=== PATIENT | male | born 1935 | race Caucasian/White ===

== ENCOUNTER 2016-10-29 17:22 | Inpatient (IN) ==
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
[2016-10-29] MEDS ORDERED: 0.9 % Sodium Chloride 500 ML IVC ONE (21:06)
[2016-10-29 21:44] LABS: Chol/HDL Ratio 6.5 (0-4.9)
[2016-10-29] MEDS: *HR* Heparin 5,000 UNIT/ML VIAL SQ SCH (22:25)
[2016-10-29] MEDS: 0.9 % Sodium Chloride 1,000 ML IVC SCH (22:26)
[2016-10-30] MEDS ORDERED: *HR* LORazepam 2 MG/ML VIAL IVP ONE (01:20)
[2016-10-30] MEDS ORDERED: *HR* LORazepam 2 MG/ML VIAL ONE ×2 (01:27→11:32)
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
[2016-10-30] MEDS ORDERED: Haloperidol Lactate 5 MG/ML VIAL IVP ONE ×3 (01:47→23:31)
[2016-10-30] MEDS: 0.9 % Sodium Chloride 1,000 ML IVC SCH ×2 (03:08→18:14)
[2016-10-30 05:52] LABS: Basophils % 0.4 %; Eosinophils # 0.1 K/mcL (0.0-0.6); Eosinophils % 0.7 %; Hematocrit 47.8 % (37.5-50.1); Immature Granulocytes % 0.3 % (0-4); Lymphocytes # 2.1 K/mcL (0.6-4.6); Lymphocytes % 21.7 %; Mean Corpuscular HGB Conc 31.4 g/dL (31.6-35.5); Mean Corpuscular Hemoglobin 27.9 pg (28.0-33.3); Mean Corpuscular Volume 88.8 fL (83.0-100.0); Mean Platelet Volume 11.3 fL (9.4-12.4); Monocytes # 0.8 K/mcL (0.0-1.3); Monocytes % 8.1 %; Neutrophils # 6.6 K/mcL (1.6-8.9); Platelet Count 116 K/mcL (140-400); Red Blood Count 5.38 M/mcL (4.19-5.50); Red Cell Distribution Width 12.8 % (11.5-14.5); Segmented Neutrophils % 68.8 %
[2016-10-30 05:57] LABS: INR 1.1; Prothrombin Time 12.3 Seconds (9.4-12.1)
[2016-10-30 06:12] LABS: BUN/Creatinine Ratio 22 (6-26); Blood Urea Nitrogen 24 mg/dL (8-26); Calcium 9.1 mg/dL (8.6-10.8); Carbon Dioxide 20 mEq/L (19-29); Chloride 109 mEq/L (98-109); Glucose 94 mg/dL (70-99); Osmolality,Calculated 298 (280-300); Potassium 4.1 mEq/L (3.5-4.5); Sodium 142 mEq/L (136-145); eGFR For African Americans > 60 (> 60); eGFR For Non-African Americans > 60 (> 60)
[2016-10-30] MEDS: Famotidine 20 MG/2 ML VIAL IVP SCH ×2 (06:27→17:24)
[2016-10-30] MEDS: *HR* Heparin 5,000 UNIT/ML VIAL SQ SCH ×2 (06:31→18:19)
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
--- NOTE | 2016-10-30 09:19 | ECHO - Doppler Report ---
Echo with Saline Contrast Name: Joseph Crawford Date of Study: 10/30/2016 Date: 1935 Ht: 69.0 in Medical Record#: [id number] Age: 81 Wt: 177.0 lb Gender: Male BSA: 1.96 Order #: [id number] Location: [facility] Room #: 2NE29 Reading Physician: Rory Ta MD, [facility] Management Professor: Candis Mitchell T Ordering Physician: Vidhya Levy DO Primary Physician: None Indications: Cerebrovascular Accident Impressions: Normal left ventricular size and systolic function, LVEF 60-65%. Mild concentric left ventricular hypertrophy. Mild left ventricular diastolic dysfunction. Normal right ventricular size and function. Mild aortic regurgitation. No evidence of pulmonary hypertension. No evidence of intracardiac shunting with agitated saline contrast. Blood pressure was elevated (194/96) at the time of this study. Left Ventricular Wall Motion: Rest Echo Findings All wall segments showed normal motion. Findings: Study Quality * Technically adequate exam. ECG Findings * Sinus rhythm with PACs. Left Ventricle * Normal left ventricular size and systolic function, LVEF 60-65%. * Mild concentric left ventricular hypertrophy. * Mild left ventricular diastolic dysfunction. Right Ventricle * Normal right ventricular size and function. Left Atrium * Normal left atrial size. Right Atrium * Normal right atrial size. Interatrial Septum * No evidence of intracardiac shunting with agitated saline contrast. Aorta * Normally sized aortic root. Pericardium * There is no pericardial effusion present. IVC * The IVC is not well evaluated. Aortic Valve * Trileaflet aortic valve. * Mild-moderately sclerotic aortic valve leaflets. * No aortic stenosis. * Mild aortic regurgitation. Mitral Valve * Mild mitral annular calcification * No mitral stenosis. * Trace mitral regurgitation. Tricuspid Valve * Normal tricuspid valve structure. * No tricuspid stenosis. * Trace tricuspid regurgitation. * No evidence of pulmonary hypertension. Pulmonic Valve * Normal pulmonic valve structure. * No pulmonic stenosis. * Trace pulmonic regurgitation. Contrast: Agitated saline 16 ml. Measurements: BP: 196/ 94 2D Normal Values RVIDd: 3.40 cm IVSd: 1.30 cm 0.6 - 1.0 cm LVIDd: 4.50 cm 3.7 - 5.6 cm LVPWd: 1.20 cm 0.6 - 1.1 cm LVIDs: 2.80 cm 1.5 - 3.6 cm AO: 3.20 cm < 4.0 cm LA volume: 56 Mitral Valve Peak E:.79 m/sec Peak A:1.10 m/sec E/A Ratio:0.7 Tricuspid Valve TV Regurg Peak Grad: 26.00mmHg TV Regurg Peak Ricky: 2.60m/sec Updated by Rory Ta MD, [facility] on 10/30/2016 9:13:05 AM electronically signed on 10/30/2016 9:14:07 AM with status of Final Wall Motion [place]: 1=Normal, 2=Hypokinesis, 3=Akinesis, 4=Dyskinesis, 5=Aneurysmal, 6=Hyperkinetic, X=Not Visualized (Blank)=Missing
[2016-10-30] MEDS ORDERED: Haloperidol Lactate 5 MG/ML VIAL IVP PRN (12:52)
[2016-10-30 13:56] LABS: Alanine Aminotransferase 11 Units/L (0-55); Albumin 3.9 g/dL (3.5-5.0); Albumin/Globulin Ratio 1.2 (1.1-2.2); Alkaline Phosphatase 77 Units/L (38-126); Aspartate Amino Transferase 22 Units/L (5-34); Bilirubin,Direct 0.4 mg/dL (0.0-0.5); Bilirubin,Indirect 0.7 mg/dL (0.0-1.2); Bilirubin,Total 1.1 mg/dL (0.2-1.2); Globulin 3.3 g/dL (2.4-3.5); Total Protein 7.2 g/dL (6.0-8.3)
[2016-10-30 14:42] LABS: Ethanol < 10 mg/dL (0-10)
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
[2016-10-30] MEDS: Thiamine (B-1) 100 MG in D5% in Water 50 ML IVPB SCH (17:11)
[2016-10-30] MEDS: Aspirin 325 MG TABLET PO SCH (17:19)
[2016-10-30] MEDS ORDERED: *HR* LORazepam 2 MG/ML VIAL IVP PRN (17:34)
[2016-10-30] MEDS: Folic Acid 1 MG in D5% in Water 50 ML IVPB SCH (18:09)
--- NOTE | 2016-10-30 20:44 | Carotid Imaging Report ---
Carotid Duplex Patient Name:Joseph Crawford Order Number:[id number] Procedure Date:10/30/2016 Date:1935ge:81 yrs Gender:Male Lt BP:186 / 88 mmHg Rt.BP:188 / 90 mmHgHeart Rate: Location:[facility] Room #: 2NE29 Discount Clerk:Candis Mitchell, RVT Referring MD:Vidhya Levy DO scrubber machine tender:None Reading MD:Antelmo Green MD , FACS Primary Indications:CVA Impressions: Findings: Right carotid system is essentially normal. Findings: Right mid ICA has a severe, 60-79% stenosis. Recommendations: After imaging the patient returned to their room. Test completed on 10/30/2016 at 8:00:00 am. Findings Carotid Duplex: Right: The right proximal common carotid artery has a PSV of 67 cm/s and a EDV of 9 cm/s. The right mid common carotid artery has a PSV of 83 cm/s and a EDV of 11 cm/s. There is intimal thickening. The right distal common carotid artery has a PSV of 79 cm/s and a EDV of 13 cm/s. There is intimal thickening. The right bifurcation has a PSV of 57 cm/s and a EDV of 10 cm/s. There is intimal thickening. The right proximal internal carotid artery has a PSV of 44 cm/s and a EDV of 8 cm/s. There is intimal thickening. The right mid internal carotid artery has a PSV of 48 cm/s and a EDV of 8 cm/s. The right distal internal carotid artery has a PSV of 40 cm/s and a EDV of 8 cm/s. The right eca has a PSV of 80 cm/s. The right vertebral artery has a PSV of 69 cm/s and a EDV of 12 cm/s. Left: The left proximal common carotid artery has a PSV of 83 cm/s and a EDV of 11 cm/s. The left mid common carotid artery has a PSV of 93 cm/s and a EDV of 11 cm/s. There is intimal thickening. The left distal common carotid artery has a PSV of 81 cm/s and a EDV of 13 cm/s. There is intimal thickening. The left bifurcation has a PSV of 65 cm/s and a EDV of 12 cm/s. There is intimal thickening. The left proximal internal carotid artery has a PSV of 27 cm/s and a EDV of 9 cm/s. There is 60-79% stenosis in the left mid internal carotid artery with a PSV of 267 cm/s and a EDV of 58 cm/s. There is calcified plaque. The left distal internal carotid artery has a PSV of 95 cm/s and a EDV of 21 cm/s. The left eca has a PSV of 86 cm/s and a EDV of 14 cm/s. The left vertebral artery has a PSV of 32 cm/s and a EDV of 9 cm/s. Prior Study: No prior study available for comparison. Carotid Results Right PSV EDV Assessment Proximal CCA 67 9 Mid CCA 83 11 Distal CCA 79 13 Bifurcation 57 10 Proximal ICA 44 8 Mid ICA 48 8 Distal ICA 40 8 ECA 80 0 Vertebral Artery 69 12 Left PSV EDV Assessment Proximal CCA 83 11 Mid CCA 93 11 Distal CCA 81 13 Bifurcation 65 12 Proximal ICA 27 9 Mid ICA 267 58 Distal ICA 95 21 ECA 86 14 Vertebral Artery 32 9 Ratio's Right ICA/CCA Ratio: 0.53 ICA/CCA Values: 44/83 Left ICA/CCA Ratio: 2.87 ICA/CCA Values: 267/93 Updated by Antelmo Green MD, FACS on 10/30/2016 8:38:30 PM Antelmo Green MD electronically signed on 10/30/2016 8:39:07 PM with status of Final
[2016-10-30] MEDS: *HR* LORazepam 2 MG/ML VIAL IVP PRN (21:55)
[2016-10-30] MEDS: Latanoprost 2.5 ML BOTTLE BOTH EYES SCH (21:57)
[2016-10-31] MEDS: *HR* LORazepam 2 MG/ML VIAL IVP PRN ×2 (05:04→23:05)
[2016-10-31] MEDS: Famotidine 20 MG/2 ML VIAL IVP SCH ×2 (05:07→17:44)
[2016-10-31 06:15] LABS: BUN/Creatinine Ratio 18 (6-26); Blood Urea Nitrogen 18 mg/dL (8-26); Carbon Dioxide 18 mEq/L (19-29); Chloride 105 mEq/L (98-109); Glucose 137 mg/dL (70-99); Magnesium 1.6 mg/dL (1.6-2.6); Osmolality,Calculated 292 (280-300); Phosphorous 3.5 mg/dL (2.3-4.7); Potassium 3.8 mEq/L (3.5-4.5); Sodium 139 mEq/L (136-145); eGFR For African Americans > 60 (> 60); eGFR For Non-African Americans > 60 (> 60)
[2016-10-31] MEDS: Folic Acid 1 MG in D5% in Water 50 ML IVPB SCH (08:34)
[2016-10-31] MEDS: Thiamine (B-1) 100 MG in D5% in Water 50 ML IVPB SCH (08:35)
[2016-10-31] MEDS: *HR* Heparin 5,000 UNIT/ML VIAL SQ SCH ×2 (08:35→20:08)
[2016-10-31] MEDS: Aspirin 325 MG TABLET PO SCH (08:36)
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
[2016-10-31] MEDS: 0.9 % Sodium Chloride 1,000 ML IVC SCH ×2 (13:30→23:11)
[2016-10-31] MEDS ORDERED: *HR* LORazepam 2 MG/ML VIAL IVP PRN ×2 (14:32)
--- NOTE | 2016-10-31 15:47 | Neurology Progress Note ---
Date of Encounter: 10/31/16 Time of Encounter: 15:44 Assessment and Plan (1) CVA (cerebral vascular accident) Current Visit: No Status: Acute right apprentice funeral director territory infarct. Carotid artery artery duplex showed left ICA 60-79 % stenosis but this is essentially asymptomatic. Echocardiography showed LVEF of 60% and no source of emboli noted. Likely thrombotic event from left OPTOMETRIC COORDINATOR. Please continue aspirin RC 300mg/oral 325mg daily. Continue statin therapy. Continue medical and supportive care Qualifiers: CVA mechanism: occlusion Precerebral and cerebral artery: posterior cerebral artery Laterality of affected vessel: left Qualified Code(s): I63.532 - Cerebral infarction due to unspecified occlusion or stenosis of left posterior cerebral artery (2) Agitation Current Visit: Yes Status: Acute The patient has been confused and agitated and now he is sedated but still has significant confusion and major concern if alcohol withdrawal. patient has no fever, no leucocytosis, no complaint of headache and it is unlikely we are dealing with VALVE SEATER OPERATOR infection. Will obtain MRI of brain ( uanble to be done until Thursday) or repeat CT of head without contrast to see stable evolution is present. Continue DT prophylaxis and medical supportive Subjective Principal diagnosis: altered mental status Interval history: Patient is currently sedated and last dose of ativan this AM. Per nursing staff , patient woke up half hour ago, still confused and talks nonsense. Less combative today. Moves all extremities and complains no headaches. No seizure activity. no Fever. Is chronic alcohol drinker but detailed information regarding the alcohol use is unknown. Initial CT of head is normal. No leucocytosis on CBC. Carotid artery duplex showed 60-79% left mid ICA stenosis, Right ICA is essentially normal. Echocardiography showed normal LVEF, no significant valvular disease, no regional wall motion abnormality seen. Objective - Constitutional Vitals: Temp Pulse Resp BP Pulse Ox 98.9 F 86 18 203/120 96 10/31/16 09:05 10/31/16 12:00 10/31/16 12:00 10/31/16 14:52 10/31/16 08:30 - Neurological Exam Sensorimotor examination: Present: other (Unable to assess no gross sensory loss ) Motor Examination: Present: grossly full strength in all extremities, other ( Grossly intact. Unable to assess more accurately due to sedation) Sensation intact: Present: other (Unable to assess due to sedation) Posture: Present: other (None) Reflex and gait examination: other (Gait not tested) Reflexes: Biceps: 1+, Triceps: 1+, Brachioradialis: 1+, Patella: 1+, Achilles: 1 + Mental Status Examination: Present: awake, alert, does not follow commands, delerious, agitated, opens eyes to voice, opens eyes to noxious stimulation, makes eye contact, inattentive Cranial nerve examination: Present: PERRL, EOMI (appears full, more to the right side. No nystagmus), visual salgado intact, corneal reflexes brisk symmetrically, sensory to face intact (unable to assess), mastication intact, no facial asymmetry is present, no dysarthria (Dysarthric, unable to decipher what he is saying), hearing is intact symmetrically, soft palate elevates bilaterally upon phonation, gag reflex intact, flexes SCM and trapezius muscles symmetrically with full power, tongue protrudes midline (Unable to assess due to sedation), no atrophy or facial fasiculations present (Not assessed) Results - Laboratory Findings CBC and BMP: 10/30/16 05:36 10/31/16 05:47 Abnormal lab findings: Abnormal lab results MCH 27.9 pg (28.0-33.3) L 10/30/16 05:36 MCHC 31.4 g/dL (31.6-35.5) L 10/30/16 05:36 Plt Count 116 K/mcL (140-400) L 10/30/16 05:36 PT 12.3 Seconds (9.4-12.1) H 10/30/16 05:36 Carbon Dioxide 18 mEq/L (19-29) L 10/31/16 05:47 Glucose 137 mg/dL (70-99) H 10/31/16 05:47 Cholesterol 228 mg/dL (< 200) H 10/29/16 21:07 LDL Cholesterol, Calc 169 mg/dL (0-99) H 10/29/16 21:07 HDL Cholesterol 35 mg/dL (40-59) L 10/29/16 21:07 Cholesterol/HDL Ratio 6.5 (0-4.9) H 10/29/16 21:07 Consult Discharge Plan - Plan Referrals: NO,PCP [Primary Care Provider] -
--- NOTE | 2016-10-31 16:52 | Electrocardiograph Report ---
[place] [id number] Test Date: 2016-10-30 Pat Name: Joseph Crawford Department: 111 Room: 2NE29 Gender: M Cytotechnologist/Histotechnologist: : 1935 Requested By: Vidhya Levy Order Number: [id number] Reading MD: Lakesha Chapman Measurements Intervals [place] Rate: 105 P: [place]: 0 QRS: -11 QRSD: 150 T: -5 QT: 348 QTc: 409 Interpretive Statements ATRIAL FIBRILLATION WITH RAPID VENTRICULAR RESPONSE RIGHT BUNDLE BRANCH BLOCK Electronically Signed On 10-31-2016 16:51:24 EST by Lakesha Chapman
[2016-10-31] MEDS: Thiamine (B-1) 100 MG, Folic Acid 1 MG, MVI, adult with vitamin K 10 ML in 0.9 % Sodi... IVPB SCH (17:44)
[2016-10-31] MEDS: Latanoprost 2.5 ML BOTTLE BOTH EYES SCH (20:08)
[2016-11-01] MEDS: *HR* Labetalol 20 MG/4 ML SYRINGE IVP PRN (05:42)
[2016-11-01] MEDS: Famotidine 20 MG/2 ML VIAL IVP SCH ×2 (05:43→16:31)
[2016-11-01 06:31] LABS: INR 1.2; Prothrombin Time 12.7 Seconds (9.4-12.1)
[2016-11-01 06:32] LABS: Hematocrit 48.7 % (37.5-50.1); Hemoglobin 16.3 g/dL (12.9-16.9)
[2016-11-01 06:34] LABS: Activated Partial Thrombo Time 30.1 Seconds (26.0-36.0)
[2016-11-01 06:40] LABS: BUN/Creatinine Ratio 19 (6-26); Blood Urea Nitrogen 17 mg/dL (8-26); Calcium 8.8 mg/dL (8.6-10.8); Carbon Dioxide 21 mEq/L (19-29); Chloride 107 mEq/L (98-109); Glucose 117 mg/dL (70-99); Osmolality,Calculated 291 (280-300); Potassium 3.6 mEq/L (3.5-4.5); Sodium 139 mEq/L (136-145); eGFR For African Americans > 60 (> 60); eGFR For Non-African Americans > 60 (> 60)
[2016-11-01] MEDS: *HR* Heparin 5,000 UNIT/ML VIAL SQ SCH ×2 (06:43→16:32)
[2016-11-01] MEDS: Aspirin 325 MG TABLET PO SCH (09:42)
[2016-11-01] MEDS: 0.9 % Sodium Chloride 1,000 ML IVC SCH ×3 (09:44→23:12)
--- NOTE | 2016-11-01 13:38 | Internal Med Progress Note ---
Date of Encounter: 11/01/16 Time of Encounter: 13:33 - Assessment and plan (1) CVA (cerebral vascular accident) Current Visit: No Status: Acute Assessment and plan: -CT non contrast CT reveals acute posterior infarct. Non hemorrhagic -Patient very agitated. unable to do further images -Patient passed swallow eval. Plan -Keep HOB <15 degrees -Allow permissive HTN. Systolic 160-210. -Will consider getting carotid US when patient less agitated. -Aspirin oral or rectal ordered daily. Statin on board. 10/31/16 -Patient very lethargic today. Only one episode of combativeness -Not getting scheduled or frequent benzo use -Patient does respond to commands and eyes are PEERL and not fixed. Dont feel like aditional immaging is needed at this time to evaluate for worsening stroke -Continue to allow permissive HTN -ECHO WNL -Carotid artery scan showed Right mid ICA stenosis 60/79% Plan -Continue rectal or oral asprin,statin -Low dose Labetalol ordered for HTN >220/120 -Neuro on board. Following recommendations 11/01/[address] brain today suggestive of stroke in evolution. no hemorrhagic conversion noted. Blood pressure with in acceptable range. Neuro on board. case discussed with Neuro ( Dr Cedillo) no need of LP at this point. will cont present management Qualifiers: CVA mechanism: occlusion Precerebral and cerebral artery: posterior cerebral artery Laterality of affected vessel: left Qualified Code(s): I63.532 - Cerebral infarction due to unspecified occlusion or stenosis of left posterior cerebral artery (2) AA (alcohol abuse) Current Visit: Yes Status: Acute Assessment and plan: -Patient states that he drinks whiskey daily. Neighbors state patient lives a secluded life. -Patient became very agitated, confused, disoriented. Alcohol withdraw vs dementia vs acute stroke. -Glucose normal, no need to add glucose to fluids. Plan -Start fluids with NS, folate, thiamine-prevent wernickies. -Check glucose -Ativan on board. Librium ordered if patient will be compliant. CWA protocol initiated. -Haldol d/c because of decrease in seizure threshold -Keep restraints and sitter. 10/31/16 -same as above 11/01/2016 likely etoh withdrawl. on Librim and Ativan: scheduled dose. jesus (3) Hypertension Current Visit: Yes Status: Acute Assessment and plan: -Permissive HTN for the next week, per neurology. Qualifiers: Hypertension type: other secondary hypertension Qualified Code(s): I15.8 - Other secondary hypertension - Subjective Interval history: seen and examined. comfortably sleeping in bed. woke up on arousal. - Constitutional Vitals: Temp Pulse Resp BP Pulse Ox 99.2 F 85 16 195/105 96 11/01/16 10:49 11/01/16 10:49 11/01/16 10:49 11/01/16 10:49 11/01/16 10:49 General appearance: Present: A&O X 1 (confused) - Head Head exam: Present: atraumatic, normocephalic - Eye Eye exam: Present: PERRL, conjuntiva pink, sclera anicteric Pupils: Present: PERRL - Neck Neck exam general surgery: Present: supple, trachea midline. Absent: lymphadenopathy - Respiratory Respiratory exam: Present: CTAB. Absent: accessory muscle use, rales, rhonchi, wheezes - Cardiovascular Cardiovascular exam: Present: RRR, +S1, +S2. Absent: diastolic murmur, gallop, rubs, systolic murmur - GI/Abdominal GI/Abdominal exam: Present: normal bowel sounds, soft, no peritoneal signs. Absent: distended, tenderness - Extremities Exam Extremities exam: Present: warm, radial pulses palpable and symetrical. Absent : calf tenderness, cyanotic, pedal edema - Neurological Exam Neurological exam: Present: CN II-XII intact, oriented X3, no focal deficits. Absent: pronater drift, facial droop, speech deficit - Skin Skin exam: Present: dry, intact Internal Medicine: Result - Labs CBC & Chem 7: 11/01/16 06:13 11/01/16 06:13 Labs: Short CBC 11/01/16 Range/Units 06:13 Hgb 16.3 (12.9-16.9) g/dL Hct 48.7 (37.5-50.1) % BMP 11/01/16 06:13 Sodium 139 Potassium 3.6 Chloride 107 Carbon Dioxide 21 BUN 17 Creatinine 0.89 Glucose 117 H Calcium 8.8 - ABG Interpretation ABG results: PT/INR, D-dimer PT 12.7 Seconds (9.4-12.1) H 11/01/16 06:13 - Impressions Impressions Head CT 11/01/16 10:30 IMPRESSION: Continued evolution of acute to subacute infarct involving the left CAR LOADER distribution. No evidence of hemorrhagic transformation. D/ / 11/01/2016 11:58:08 Tom Bojorquez MD / florecita Interpreting Provider: Tom Bojorquez MD Consult Discharge Plan - Plan Referrals: NO,PCP [Primary Care Provider] -
[2016-11-01] MEDS: Thiamine (B-1) 100 MG, Folic Acid 1 MG, MVI, adult with vitamin K 10 ML in 0.9 % Sodi... IVPB SCH (16:30)
--- NOTE | 2016-11-01 18:16 | Neurology Progress Note ---
Date of Encounter: 11/01/16 Time of Encounter: 18:13 Assessment and Plan (1) CVA (cerebral vascular accident) Current Visit: No Status: Acute As per CT scan findings there is a possibility that patient did have an acute infarct suggested that we should continue on antiplatelet therapy, He also has stenosis of carotid but it is an asymptomatic side do not think that he will need any surgical intervention at this time perhaps could be done later on suggested to continue on his statin and Plavix. (2) Agitation Current Visit: Yes Status: Acute Changes on Ciwa protocol suggested to continue high risk for withdrawal, once he is awake he may need physical therapy evaluation other treatment is as per primary team Subjective Principal diagnosis: altered mental status Interval history: Patient noted to be sedated as he was very agitated earlier he is been on sedation now no new symptoms reported by staff Objective - Constitutional Vitals: Temp Pulse Resp BP Pulse Ox 99.2 F 96 24 187/113 96 11/01/16 10:49 11/01/16 15:08 11/01/16 15:08 11/01/16 15:08 11/01/16 10:49 - Neurological Exam Sensorimotor examination: Present: intact, other (Unable to assess no gross motor defecit, limited neurological exam due to sedation) Motor Examination: Present: grossly full strength in all extremities, other ( Grossly intact. Unable to assess more accurately due to sedation) Sensation intact: Present: other (Unable to assess due to sedation) Posture: Present: other (None) Reflex and gait examination: other (Gait not tested) Mental Status Examination: Present: awake, alert, does not follow commands, delerious, agitated, opens eyes to voice, opens eyes to noxious stimulation, makes eye contact, inattentive Cranial nerve examination: Present: PERRL, EOMI (appears full, more to the right side. No nystagmus), visual salgado intact, corneal reflexes brisk symmetrically, sensory to face intact (unable to assess), mastication intact, no facial asymmetry is present, no dysarthria (Dysarthric, unable to decipher what he is saying), hearing is intact symmetrically, soft palate elevates bilaterally upon phonation, gag reflex intact, flexes SCM and trapezius muscles symmetrically with full power, tongue protrudes midline (Unable to assess due to sedation), no atrophy or facial fasiculations present (Not assessed) Results - Laboratory Findings CBC and BMP: 11/01/16 06:13 11/01/16 06:13 Abnormal lab findings: Abnormal lab results MCH 27.9 pg (28.0-33.3) L 10/30/16 05:36 MCHC 31.4 g/dL (31.6-35.5) L 10/30/16 05:36 Plt Count 116 K/mcL (140-400) L 10/30/16 05:36 PT 12.7 Seconds (9.4-12.1) H 11/01/16 06:13 Glucose 117 mg/dL (70-99) H 11/01/16 06:13 POC Glucose 104 (58-89) H 10/31/16 18:51 Cholesterol 228 mg/dL (< 200) H 10/29/16 21:07 LDL Cholesterol, Calc 169 mg/dL (0-99) H 10/29/16 21:07 HDL Cholesterol 35 mg/dL (40-59) L 10/29/16 21:07 Cholesterol/HDL Ratio 6.5 (0-4.9) H 10/29/16 21:07 Consult Discharge Plan - Plan Referrals: NO,PCP [Primary Care Provider] -
[2016-11-01 21:29] LABS: CK-BB (CK isoenzymes) 0 % (0-0); CK-MB (CK isoenzymes) 0 % (0-4); CK-MM (CK-isoenzymes) 100 % (96-100)
[2016-11-01] MEDS: Latanoprost 2.5 ML BOTTLE BOTH EYES SCH (21:38)
[2016-11-01] MEDS ORDERED: *HR* LORazepam 2 MG/ML VIAL IVP ONE ×2 (21:53→23:08)
[2016-11-01 23:12] LABS: Bilirubin,Urine Small (Negative); Blood,Urine Large (Negative); Clarity,Urine Cloudy (Clear); Color,Urine Yellow (Yellow); Glucose,Urine (UA) Normal (Normal); Ketones,Urine 40 mg/dL (Negative); Leukocyte Esterase,Urine Negative (Negative); Nitrite,Urine Negative (Negative); PH,Urine 5.5 pH Units (5.0-8.0); Protein,Urine >=300 mg/dL (Neg-Trace); Specific Gravity,Urine 1.022 (1.010-1.025); Urobilinogen,Urine Normal (Normal)
[2016-11-01 23:15] LABS: Bacteria,Urine None Seen per hpf (None-Few); Hyaline Casts,Urine None Seen per lpf (None-Few); RBC,Urine TNTC per hpf (0-3); Squamous Epithelial Cell,Urine Many per lpf (None-Few)
[2016-11-01 23:38] LABS: Mucus,Urine Few (Few); Renal Epithelial Cells,Urine Moderate per hpf (None-Few); Yeast,Urine Few per hpf (None Seen)
[2016-11-02] MEDS: Famotidine 20 MG/2 ML VIAL IVP SCH ×2 (05:02→16:48)
[2016-11-02 05:40] LABS: Red Cell Distribution Width 12.8 % (11.5-14.5)
[2016-11-02 05:42] LABS: Basophils % 0.3 %; Eosinophils # 0.2 K/mcL (0.0-0.6); Eosinophils % 1.9 %; Hematocrit 49.6 % (37.5-50.1); Hemoglobin 16.1 g/dL (12.9-16.9); Immature Granulocytes % 0.5 % (0-4); Immature Platelets 9.2 % (1.1-6.1); Lymphocytes # 2.5 K/mcL (0.6-4.6); Lymphocytes % 22.2 %; Mean Corpuscular HGB Conc 32.5 g/dL (31.6-35.5); Mean Corpuscular Hemoglobin 27.6 pg (28.0-33.3); Mean Corpuscular Volume 84.9 fL (83.0-100.0); Mean Platelet Volume 12.1 fL (9.4-12.4); Monocytes # 1.3 K/mcL (0.0-1.3); Monocytes % 11.3 %; Neutrophils # 7.1 K/mcL (1.6-8.9); Platelet Count 101 K/mcL (140-400); Red Blood Count 5.84 M/mcL (4.19-5.50); Segmented Neutrophils % 63.8 %
[2016-11-02 05:43] LABS: INR 1.1; Prothrombin Time 12.3 Seconds (9.4-12.1)
[2016-11-02 05:59] LABS: Alanine Aminotransferase 19 Units/L (0-55); Albumin 3.1 g/dL (3.5-5.0); Albumin/Globulin Ratio 0.9 (1.1-2.2); Alkaline Phosphatase 70 Units/L (38-126); Aspartate Amino Transferase 32 Units/L (5-34); BUN/Creatinine Ratio 21 (6-26); Bilirubin,Total 1.1 mg/dL (0.2-1.2); Blood Urea Nitrogen 20 mg/dL (8-26); Calcium 8.8 mg/dL (8.6-10.8); Carbon Dioxide 21 mEq/L (19-29); Chloride 109 mEq/L (98-109); Globulin 3.4 g/dL (2.4-3.5); Glucose 99 mg/dL (70-99); Osmolality,Calculated 295 (280-300); Potassium 3.6 mEq/L (3.5-4.5); Sodium 141 mEq/L (136-145); Total Protein 6.5 g/dL (6.0-8.3); eGFR For African Americans > 60 (> 60); eGFR For Non-African Americans > 60 (> 60)
[2016-11-02] MEDS: *HR* Heparin 5,000 UNIT/ML VIAL SQ SCH ×2 (06:17→16:48)
[2016-11-02] MEDS: *HR* LORazepam 2 MG/ML VIAL IVP PRN ×2 (08:46→12:23)
[2016-11-02] MEDS: 0.9 % Sodium Chloride 1,000 ML IVC SCH ×2 (10:38→20:33)
[2016-11-02] MEDS: Aspirin 325 MG TABLET PO SCH (11:51)
--- NOTE | 2016-11-02 14:39 | Consult Note ---
Date of Encounter: 11/02/16 Time of Encounter: 14:34 Assessment & Recommendation (1) AA (alcohol abuse) Current visit: Yes Status: Acute Assessment & Recommendation: Patient cannot be evaluated at this time due to his delirious condition consult were not being done until further notice thank you. History of Present Illness Patient: new to practice Requesting Physician: Kian Mondragon MD Reason for consult: delerium History of present illness: Mr. Crawford is a 81 year old male admitted to the hospital for treatment of CVA, alcohol withdrawal delirium, agitation and combativeness and change of mental status. I reviewed the medical records and discussed the case with medical attending Dr. Mondragon . Dr. Carmichael indicated that the patient is in a delirious condition and unable to respond to commands at this time and he cannot be interviewed. CC: Kian Mondragon MD Past Med Surg Social Fam HX - Past Medical History Medical history: glaucoma, other - Social History Smoking Status: Never smoker Smokeless Tobacco Status: No Alcohol use: none Drug use: none Medications & Allergies No Known Home Drugs 10/29/16 [History] Allergies No Known Allergies Allergy (Verified 10/30/16 07:45) Results - Vital Signs Vital signs: Temp Pulse Resp BP Pulse Ox 97.8 F 83 18 178/84 95 11/02/16 07:00 11/02/16 07:00 11/02/16 07:00 11/02/16 07:00 11/02/16 07:00 - Labs Labs: Laboratory Last Values WBC 11.1 K/mcL (4.3-11.1) 11/02/16 05:17 RBC 5.84 M/mcL (4.19-5.50) H 11/02/16 05:17 Hgb 16.1 g/dL (12.9-16.9) 11/02/16 05:17 Hct 49.6 % (37.5-50.1) 11/02/16 05:17 MCV 84.9 fL (83.0-100.0) 11/02/16 05:17 MCH 27.6 pg (28.0-33.3) L 11/02/16 05:17 MCHC 32.5 g/dL (31.6-35.5) 11/02/16 05:17 RDW 12.8 % (11.5-14.5) 11/02/16 05:17 Plt Count 101 K/mcL (140-400) L 11/02/16 05:17 MPV 12.1 fL (9.4-12.4) 11/02/16 05:17 Immature Gran % 0.5 % (0-4) 11/02/16 05:17 Seg Neutrophils % 63.8 % 11/02/16 05:17 Lymphocytes % 22.2 % 11/02/16 05:17 Monocytes % 11.3 % 11/02/16 05:17 Eosinophils % 1.9 % 11/02/16 05:17 Basophils % 0.3 % 11/02/16 05:17 Neutrophils # 7.1 K/mcL (1.6-8.9) 11/02/16 05:17 Lymphocytes # 2.5 K/mcL (0.6-4.6) 11/02/16 05:17 Monocytes # 1.3 K/mcL (0.0-1.3) 11/02/16 05:17 Eosinophils # 0.2 K/mcL (0.0-0.6) 11/02/16 05:17 Basophils # 0.0 K/mcL (0.0-0.2) 11/02/16 05:17 Immature Plt Fraction 9.2 % (1.1-6.1) H 11/02/16 05:17 PT 12.3 Seconds (9.4-12.1) H 11/02/16 05:17 INR 1.1 11/02/16 05:17 APTT 30.1 Seconds (26.0-36.0) 11/01/16 06:13 Sodium 141 mEq/L (136-145) 11/02/16 05:17 Potassium 3.6 mEq/L (3.5-4.5) 11/02/16 05:17 Chloride 109 mEq/L (98-109) 11/02/16 05:17 Carbon Dioxide 21 mEq/L (19-29) 11/02/16 05:17 BUN 20 mg/dL (8-26) 11/02/16 05:17 Creatinine 0.96 mg/dL (0.72-1.25) 11/02/16 05:17 Est GFR ( Amer) > 60 (> 60) 11/02/16 05:17 Est GFR (Non-Af Amer) > 60 (> 60) 11/02/16 05:17 BUN/Creatinine Ratio 21 (6-26) 11/02/16 05:17 Glucose 99 mg/dL (70-99) 11/02/16 05:17 POC Glucose 104 (58-89) H 10/31/16 18:51 Calculated Osmolality 295 (280-300) 11/02/16 05:17 Calcium 8.8 mg/dL (8.6-10.8) 11/02/16 05:17 Phosphorus 3.5 mg/dL (2.3-4.7) 10/31/16 05:47 Magnesium 1.6 mg/dL (1.6-2.6) 10/31/16 05:47 Total Bilirubin 1.1 mg/dL (0.2-1.2) 11/02/16 05:17 Direct Bilirubin 0.4 mg/dL (0.0-0.5) 10/30/16 12:40 Indirect Bilirubin 0.7 mg/dL (0.0-1.2) 10/30/16 12:40 AST 32 Units/L (5-34) 11/02/16 05:17 ALT 19 Units/L (0-55) 11/02/16 05:17 Alkaline Phosphatase 70 Units/L (38-126) 11/02/16 05:17 Creatine Kinase 136 Units/L (30-200) 10/29/16 21:07 Troponin I 0.03 ng/mL (0-0.03) 10/30/16 12:40 Serum Total Protein 6.5 g/dL (6.0-8.3) 11/02/16 05:17 Albumin 3.1 g/dL (3.5-5.0) L D 11/02/16 05:17 Globulin 3.4 g/dL (2.4-3.5) 11/02/16 05:17 Albumin/Globulin Ratio 0.9 (1.1-2.2) L 11/02/16 05:17 Triglycerides 120 mg/dL (< 150) 10/29/16 21:07 Cholesterol 228 mg/dL (< 200) H 10/29/16 21:07 LDL Cholesterol, Calc 169 mg/dL (0-99) H 10/29/16 21:07 VLDL Cholesterol, Calc 24 mg/dL (< 31) 10/29/16 21:07 HDL Cholesterol 35 mg/dL (40-59) L 10/29/16 21:07 Cholesterol/HDL Ratio 6.5 (0-4.9) H 10/29/16 21:07 Urine Color Yellow (Yellow) 11/01/16 23:00 Urine Clarity Cloudy (Clear) A 11/01/16 23:00 Urine pH 5.5 pH Units (5.0-8.0) 11/01/16 23:00 Ur Specific [place] 1.022 (1.010-1.025) 11/01/16 23:00 Urine Protein >=300 mg/dL (Neg-Trace) H 11/01/16 23:00 Urine Glucose (UA) Normal mg/dL (Normal) 11/01/16 23:00 Urine Ketones 40 mg/dL (Negative) H 11/01/16 23:00 Urine Blood Large (Negative) H 11/01/16 23:00 Urine Nitrite Negative (Negative) 11/01/16 23:00 Urine Bilirubin Small (Negative) H 11/01/16 23:00 Urine Urobilinogen Normal mg/dL (Normal) 11/01/16 23:00 Ur Leukocyte Esterase Negative (Negative) 11/01/16 23:00 Urine Microscopic RBC TNTC per hpf (0-3) H 11/01/16 23:00 Urine Microscopic WBC 5-15 per hpf (0-3) H 11/01/16 23:00 Ur Squamous Epith Cells Many per lpf (None-Few) H 11/01/16 23:00 Ur Renal Epithelial Cell Moderate per hpf (None-Few) H 11/01/16 23:00 Urine Bacteria None Seen per hpf (None-Few) 11/01/16 23:00 Hyaline Casts None Seen per lpf (None-Few) 11/01/16 23:00 Urine Mucus Few (Few) 11/01/16 23:00 Urine Yeast Few per hpf (None Seen) H 11/01/16 23:00 Ur Culture Indicated? YES (NO) A 11/01/16 23:00 Ethyl Alcohol < 10 mg/dL (0-10) 10/30/16 12:40 Consult Discharge Plan - Plan Referrals: NO,PCP [Primary Care Provider] -
[2016-11-02] MEDS: Thiamine (B-1) 100 MG, Folic Acid 1 MG, MVI, adult with vitamin K 10 ML in 0.9 % Sodi... IVPB SCH (16:48)
--- NOTE | 2016-11-02 16:48 | Internal Med Progress Note ---
Date of Encounter: 11/02/16 Time of Encounter: 16:45 - Assessment and plan (1) CVA (cerebral vascular accident) Current Visit: No Status: Acute Assessment and plan: -CT non contrast CT reveals acute posterior infarct. Non hemorrhagic -Patient very agitated. unable to do further images -Patient passed swallow eval. Plan -Keep HOB <15 degrees -Allow permissive HTN. Systolic 160-210. -Will consider getting carotid US when patient less agitated. -Aspirin oral or rectal ordered daily. Statin on board. 10/31/16 -Patient very lethargic today. Only one episode of combativeness -Not getting scheduled or frequent benzo use -Patient does respond to commands and eyes are PEERL and not fixed. Dont feel like aditional immaging is needed at this time to evaluate for worsening stroke -Continue to allow permissive HTN -ECHO WNL -Carotid artery scan showed Right mid ICA stenosis 60/79% Plan -Continue rectal or oral asprin,statin -Low dose Labetalol ordered for HTN >220/120 -Neuro on board. Following recommendations 11/01/[address] brain today suggestive of stroke in evolution. no hemorrhagic conversion noted. Blood pressure with in acceptable range. Neuro on board. case discussed with Neuro ( Dr Cedillo) no need of LP at this point. will cont present management 11/02/2016. No new developments in the last 24 hours. Psychiatry input noted and appreciated. No family at bedside today. According to the sitter patient was comfortable and was not combative at all Will continue present management Qualifiers: CVA mechanism: occlusion Precerebral and cerebral artery: posterior cerebral artery Laterality of affected vessel: left Qualified Code(s): I63.532 - Cerebral infarction due to unspecified occlusion or stenosis of left posterior cerebral artery (2) AA (alcohol abuse) Current Visit: Yes Status: Acute Assessment and plan: -Patient states that he drinks whiskey daily. Neighbors state patient lives a secluded life. -Patient became very agitated, confused, disoriented. Alcohol withdraw vs dementia vs acute stroke. -Glucose normal, no need to add glucose to fluids. Plan -Start fluids with NS, folate, thiamine-prevent wernickies. -Check glucose -Ativan on board. Librium ordered if patient will be compliant. CWA protocol initiated. -Haldol d/c because of decrease in seizure threshold -Keep restraints and sitter. 10/31/16 -same as above 11/01/2016 likely etoh withdrawl. on Librim and Ativan: scheduled dose. 11/02/2016 Likely EtOH withdrawal We will increase the Librium and Ativan (3) Hypertension Current Visit: Yes Status: Acute Assessment and plan: -Permissive HTN for the next week, per neurology. Qualifiers: Hypertension type: other secondary hypertension Qualified Code(s): I15.8 - Other secondary hypertension - Subjective Interval history: seen and examined. comfortably sleeping in bed. woke up on arousal. - Constitutional Vitals: Temp Pulse Resp BP Pulse Ox 97.8 F 83 18 178/84 95 11/02/16 07:00 11/02/16 07:00 11/02/16 07:00 11/02/16 07:00 11/02/16 07:00 General appearance: Present: A&O X 1 (confused) - Head Head exam: Present: atraumatic, normocephalic - Eye Eye exam: Present: PERRL, conjuntiva pink, sclera anicteric Pupils: Present: PERRL - Neck Neck exam general surgery: Present: supple, trachea midline. Absent: lymphadenopathy - Respiratory Respiratory exam: Present: CTAB. Absent: accessory muscle use, rales, rhonchi, wheezes - Cardiovascular Cardiovascular exam: Present: RRR, +S1, +S2. Absent: diastolic murmur, gallop, rubs, systolic murmur - GI/Abdominal GI/Abdominal exam: Present: normal bowel sounds, soft, no peritoneal signs. Absent: distended, tenderness - Extremities Exam Extremities exam: Present: warm, radial pulses palpable and symetrical. Absent : calf tenderness, cyanotic, pedal edema - Neurological Exam Neurological exam: Present: CN II-XII intact, oriented X3, no focal deficits. Absent: pronater drift, facial droop, speech deficit - Skin Skin exam: Present: dry, intact Internal Medicine: Result - Labs CBC & Chem 7: 11/02/16 05:17 11/02/16 05:17 Labs: Short CBC 11/02/16 Range/Units 05:17 WBC 11.1 (4.3-11.1) K/mcL Hgb 16.1 (12.9-16.9) g/dL Hct 49.6 (37.5-50.1) % Plt Count 101 L (140-400) K/mcL Neutrophils # 7.1 (1.6-8.9) K/mcL BMP 11/02/16 05:17 Sodium 141 Potassium 3.6 Chloride 109 Carbon Dioxide 21 BUN 20 Creatinine 0.96 Glucose 99 Calcium 8.8 Liver Function 11/02/16 Range/Units 05:17 Total Bilirubin 1.1 (0.2-1.2) mg/dL AST 32 (5-34) Units/L ALT 19 (0-55) Units/L Alkaline Phosphatase 70 (38-126) Units/L Albumin 3.1 L D (3.5-5.0) g/dL Urine 11/01/16 Range/Units 23:00 Urine Color Yellow (Yellow) Urine Clarity Cloudy A (Clear) Urine pH 5.5 (5.0-8.0) pH Units Ur Specific [place] 1.022 (1.010-1.025) Urine Protein >=300 H (Neg-Trace) mg/dL Urine Glucose (UA) Normal (Normal) mg/dL - ABG Interpretation ABG results: PT/INR, D-dimer PT 12.3 Seconds (9.4-12.1) H 11/02/16 05:17 Consult Discharge Plan - Plan Referrals: NO,PCP [Primary Care Provider] -
--- NOTE | 2016-11-02 18:49 | Neurology Progress Note ---
Date of Encounter: 11/02/16 Time of Encounter: 18:49 Assessment and Plan (1) CVA (cerebral vascular accident) Current Visit: No Status: Acute he remained very sedated limited neurological examination, Just to slowly taper him off sedation Continue on aspirin and a statin he would require long-term rehabilitation other Treatment is as per primary team Qualifiers: CVA mechanism: occlusion Precerebral and cerebral artery: posterior cerebral artery Laterality of affected vessel: left Qualified Code(s): I63.532 - Cerebral infarction due to unspecified occlusion or stenosis of left posterior cerebral artery (2) Agitation Current Visit: Yes Status: Acute Subjective Principal diagnosis: altered mental status Interval history: Patient noted to be sedated as he was very agitated earlier he is been on sedation now no new symptoms reported by staff Objective - Constitutional Vitals: Temp Pulse Resp BP Pulse Ox 98 F 91 15 187/90 94 L 11/02/16 15:00 11/02/16 15:00 11/02/16 15:00 11/02/16 15:00 11/02/16 15:00 - Neurological Exam Sensorimotor examination: Present: intact, other (Unable to assess no gross motor defecit, limited neurological exam due to sedation) Motor Examination: Present: grossly full strength in all extremities, other ( Grossly intact. Unable to assess more accurately due to sedation) Sensation intact: Present: other (Unable to assess due to sedation) Posture: Present: other (None) Reflex and gait examination: other (Gait not tested) Mental Status Examination: Present: awake, alert, does not follow commands, delerious, agitated, opens eyes to voice, opens eyes to noxious stimulation, makes eye contact, inattentive Cranial nerve examination: Present: PERRL, EOMI (appears full, more to the right side. No nystagmus), visual salgado intact, corneal reflexes brisk symmetrically, sensory to face intact (unable to assess), mastication intact, no facial asymmetry is present, no dysarthria (Dysarthric, unable to decipher what he is saying), hearing is intact symmetrically, soft palate elevates bilaterally upon phonation, gag reflex intact, flexes SCM and trapezius muscles symmetrically with full power, tongue protrudes midline (Unable to assess due to sedation), no atrophy or facial fasiculations present (Not assessed) Results - Laboratory Findings CBC and BMP: 11/03/16 05:59 11/03/16 05:59 Abnormal lab findings: Abnormal lab results RBC 5.84 M/mcL (4.19-5.50) H 11/02/16 05:17 MCH 27.6 pg (28.0-33.3) L 11/02/16 05:17 Plt Count 101 K/mcL (140-400) L 11/02/16 05:17 Immature Plt Fraction 9.2 % (1.1-6.1) H 11/02/16 05:17 PT 12.3 Seconds (9.4-12.1) H 11/02/16 05:17 POC Glucose 104 (58-89) H 10/31/16 18:51 Albumin 3.1 g/dL (3.5-5.0) L D 11/02/16 05:17 Albumin/Globulin Ratio 0.9 (1.1-2.2) L 11/02/16 05:17 Cholesterol 228 mg/dL (< 200) H 10/29/16 21:07 LDL Cholesterol, Calc 169 mg/dL (0-99) H 10/29/16 21:07 HDL Cholesterol 35 mg/dL (40-59) L 10/29/16 21:07 Cholesterol/HDL Ratio 6.5 (0-4.9) H 10/29/16 21:07 Urine Clarity Cloudy (Clear) A 11/01/16 23:00 Urine Protein >=300 mg/dL (Neg-Trace) H 11/01/16 23:00 Urine Ketones 40 mg/dL (Negative) H 11/01/16 23:00 Urine Blood Large (Negative) H 11/01/16 23:00 Urine Bilirubin Small (Negative) H 11/01/16 23:00 Urine Microscopic RBC TNTC per hpf (0-3) H 11/01/16 23:00 Urine Microscopic WBC 5-15 per hpf (0-3) H 11/01/16 23:00 Ur Squamous Epith Cells Many per lpf (None-Few) H 11/01/16 23:00 Ur Renal Epithelial Cell Moderate per hpf (None-Few) H 11/01/16 23:00 Urine Yeast Few per hpf (None Seen) H 11/01/16 23:00 Ur Culture Indicated? YES (NO) A 11/01/16 23:00 Consult Discharge Plan - Plan Referrals: NO,PCP [Primary Care Provider] -
[2016-11-02] MEDS: Latanoprost 2.5 ML BOTTLE BOTH EYES SCH (20:39)
[2016-11-03] MEDS: *HR* LORazepam 2 MG/ML VIAL IVP PRN ×2 (01:57→06:14)
[2016-11-03] MEDS: Famotidine 20 MG/2 ML VIAL IVP SCH ×2 (06:07→18:46)
[2016-11-03] MEDS: *HR* Heparin 5,000 UNIT/ML VIAL SQ SCH ×2 (06:07→22:22)
[2016-11-03 06:20] LABS: Basophils % 0.5 %
[2016-11-03 06:22] LABS: Eosinophils # 0.1 K/mcL (0.0-0.6); Eosinophils % 1.8 %; Hemoglobin 15.1 g/dL (12.9-16.9); Immature Granulocytes % 0.1 % (0-4); Immature Platelets 10.2 % (1.1-6.1); Lymphocytes # 1.6 K/mcL (0.6-4.6); Lymphocytes % 20.6 %; Mean Corpuscular HGB Conc 32.8 g/dL (31.6-35.5); Mean Corpuscular Hemoglobin 27.7 pg (28.0-33.3); Mean Corpuscular Volume 84.2 fL (83.0-100.0); Mean Platelet Volume 12.1 fL (9.4-12.4); Monocytes # 1.2 K/mcL (0.0-1.3); Monocytes % 15.3 %; Neutrophils # 4.8 K/mcL (1.6-8.9); Red Blood Count 5.46 M/mcL (4.19-5.50); Red Cell Distribution Width 12.9 % (11.5-14.5); Segmented Neutrophils % 61.7 %
[2016-11-03 06:24] LABS: Platelet Count 86 K/mcL (140-400)
[2016-11-03 06:25] LABS: INR 1.2; Prothrombin Time 12.5 Seconds (9.4-12.1)
[2016-11-03 06:37] LABS: Alanine Aminotransferase 34 Units/L (0-55); Alkaline Phosphatase 71 Units/L (38-126); Aspartate Amino Transferase 41 Units/L (5-34); BUN/Creatinine Ratio 18 (6-26); Bilirubin,Total 0.7 mg/dL (0.2-1.2); Blood Urea Nitrogen 15 mg/dL (8-26); Calcium 8.7 mg/dL (8.6-10.8); Carbon Dioxide 20 mEq/L (19-29); Chloride 110 mEq/L (98-109); Globulin 3.1 g/dL (2.4-3.5); Glucose 83 mg/dL (70-99); Osmolality,Calculated 294 (280-300); Potassium 3.3 mEq/L (3.5-4.5); Sodium 142 mEq/L (136-145); Total Protein 6.1 g/dL (6.0-8.3); eGFR For African Americans > 60 (> 60); eGFR For Non-African Americans > 60 (> 60)
[2016-11-03 06:41] LABS: BUN/Creatinine Ratio 19 (6-26); Blood Urea Nitrogen 15 mg/dL (8-26); Calcium 8.7 mg/dL (8.6-10.8); Carbon Dioxide 21 mEq/L (19-29); Chloride 109 mEq/L (98-109); Glucose 83 mg/dL (70-99); Osmolality,Calculated 294 (280-300); Potassium 3.4 mEq/L (3.5-4.5); Sodium 142 mEq/L (136-145); eGFR For African Americans > 60 (> 60); eGFR For Non-African Americans > 60 (> 60)
[2016-11-03] MEDS: 0.9 % Sodium Chloride 1,000 ML IVC SCH (06:57)
[2016-11-03 08:00] LABS: CK Total (Ck Isoenzymes) 135 U/L (20-200)
[2016-11-03] MEDS ORDERED: Magnesium Sulfate 2 GM in D5% in Water 100 ML IVPB ONE ×2 (09:02→15:11)
[2016-11-03] MEDS ORDERED: Potassium Chloride 40 MEQ, Lidocaine 1% 2 ML in D5% in Water 500 ML IVPB ONE ×2 (09:02→15:11)
[2016-11-03] MEDS ORDERED: *HR* Dextrose 50 % in Water (Syg) 50 ML SYRINGE IVP ONE (09:26)
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
[2016-11-03] MEDS: Aspirin 325 MG TABLET PO SCH (11:19)
[2016-11-03 14:57] LABS: Magnesium 1.7 mg/dL (1.6-2.6); Potassium 3.1 mEq/L (3.5-4.5)
[2016-11-03] MEDS ORDERED: Acetaminophen 650 MG RECTAL SUPP RC ONE (15:49)
--- NOTE | 2016-11-03 17:52 | Neurology Progress Note ---
Date of Encounter: 11/03/16 Time of Encounter: 17:49 Assessment and Plan (1) CVA (cerebral vascular accident) Current Visit: No Status: Acute This gentleman suffered a large part involving the left temporal occipital region. His blood pressures significantly elevated prior to and since admission. The perspectives might include age. Whether or not he has a history of ethanol abuse is nothing clearly defined. At this juncture the lethargy may in fact be due to the parietal occipital infarct or could possibly be due to the ethanol withdrawal protocol. The MR scan of the brain today however does not reveal evidence of impending herniation. In any regard at this point I would recommend going ahead and normalizing his blood pressure. I would also recommend antiplatelet therapy after his blood pressures been normalized. Statin therapy is also indicated. I will reevaluate him tomorrow. Qualifiers: CVA mechanism: occlusion Precerebral and cerebral artery: posterior cerebral artery Laterality of affected vessel: left Qualified Code(s): I63.532 - Cerebral infarction due to unspecified occlusion or stenosis of left posterior cerebral artery Subjective Principal diagnosis: altered mental status Interval history: The chart was reviewed, patient was seen and examined. Several CT scans of the head were evaluated as well as the MRI scan of the brain completed on 2016. Patient has suffered a large infarct involving the left temporal occipital region. There were subtle findings on the initial CT dated October 29 suggestive of the infarct. However the infarct is more clearly identifiable on the CT scan obtained on October 30. MRI scan obtained today reveals a very large infarct however there is no evidence of mass effect or hemorrhage. Patient however has been very lethargic and somewhat agitated when aroused. Question whether or not he has a prior history of ethanol abuse. However he is currently on the CIND protocol. Echocardiogram reveals no significant abnormalities. Carotid duplex Doppler study reveals a 60-79% stenosis of the right mid internal carotid artery however the infarct was on the left. Objective - Constitutional Vitals: Temp Pulse Resp BP Pulse Ox 100.8 F H 99 20 199/109 93 L 11/03/16 14:58 11/03/16 14:58 11/03/16 14:58 11/03/16 14:58 11/03/16 14:58 - Neurological Exam Sensorimotor examination: Present: other (Unable to assess no gross motor defecit, limited neurological exam due to sedation) Motor Examination: Present: grossly full strength in all extremities, other ( Grossly intact. Unable to assess more accurately due to sedation) Sensation intact: Present: other (Unable to assess due to sedation) Posture: Present: other (None) Reflex and gait examination: other (Gait not tested) Mental Status Examination: Present: awake, alert, does not follow commands, delerious, agitated, opens eyes to voice, opens eyes to noxious stimulation, makes eye contact, inattentive Cranial nerve examination: Present: PERRL, EOMI (appears full, more to the right side. No nystagmus), visual salgado intact, corneal reflexes brisk symmetrically, sensory to face intact (unable to assess), mastication intact, no facial asymmetry is present, no dysarthria (Dysarthric, unable to decipher what he is saying), hearing is intact symmetrically, soft palate elevates bilaterally upon phonation, gag reflex intact, flexes SCM and trapezius muscles symmetrically with full power, tongue protrudes midline (Unable to assess due to sedation), no atrophy or facial fasiculations present (Not assessed) Results - Laboratory Findings CBC and BMP: 11/03/16 05:59 11/03/16 14:38 Abnormal lab findings: Abnormal lab results MCH 27.7 pg (28.0-33.3) L 11/03/16 05:59 Plt Count 86 K/mcL (140-400) L 11/03/16 05:59 Immature Plt Fraction 10.2 % (1.1-6.1) H 11/03/16 05:59 PT 12.5 Seconds (9.4-12.1) H 11/03/16 05:59 Potassium 3.1 mEq/L (3.5-4.5) L 11/03/16 14:38 POC Glucose 104 (58-89) H 10/31/16 18:51 AST 41 Units/L (5-34) H 11/03/16 05:59 Albumin 3.0 g/dL (3.5-5.0) L 11/03/16 05:59 Albumin/Globulin Ratio 1.0 (1.1-2.2) L 11/03/16 05:59 Cholesterol 228 mg/dL (< 200) H 10/29/16 21:07 LDL Cholesterol, Calc 169 mg/dL (0-99) H 10/29/16 21:07 HDL Cholesterol 35 mg/dL (40-59) L 10/29/16 21:07 Cholesterol/HDL Ratio 6.5 (0-4.9) H 10/29/16 21:07 Urine Clarity Cloudy (Clear) A 11/01/16 23:00 Urine Protein >=300 mg/dL (Neg-Trace) H 11/01/16 23:00 Urine Ketones 40 mg/dL (Negative) H 11/01/16 23:00 Urine Blood Large (Negative) H 11/01/16 23:00 Urine Bilirubin Small (Negative) H 11/01/16 23:00 Urine Microscopic RBC TNTC per hpf (0-3) H 11/01/16 23:00 Urine Microscopic WBC 5-15 per hpf (0-3) H 11/01/16 23:00 Ur Squamous Epith Cells Many per lpf (None-Few) H 11/01/16 23:00 Ur Renal Epithelial Cell Moderate per hpf (None-Few) H 11/01/16 23:00 Urine Yeast Few per hpf (None Seen) H 11/01/16 23:00 Ur Culture Indicated? YES (NO) A 11/01/16 23:00 Consult Discharge Plan - Plan Referrals: NO,PCP [Primary Care Provider] -
[2016-11-03] MEDS: Levofloxacin 750 MG/150 ML 750 MG/150 ML BAG IVPB SCH (18:45)
[2016-11-03] MEDS: Piperacillin/Tazobactam 3.375 GM in D5% in Water (Mini-Bag+) 100 ML IVPB SCH (22:22)
[2016-11-03] MEDS: Latanoprost 2.5 ML BOTTLE BOTH EYES SCH (22:27)
[2016-11-04] MEDS: Piperacillin/Tazobactam 3.375 GM in D5% in Water (Mini-Bag+) 100 ML IVPB SCH ×3 (03:29→17:23)
[2016-11-04] MEDS: Famotidine 20 MG/2 ML VIAL IVP SCH ×2 (05:04→17:23)
[2016-11-04] MEDS: *HR* LORazepam 2 MG/ML VIAL IVP PRN (05:04)
[2016-11-04] MEDS: 0.9 % Sodium Chloride 1,000 ML IVC SCH (05:04)
[2016-11-04 05:12] LABS: Hemoglobin 14.7 g/dL (12.9-16.9)
[2016-11-04 05:14] LABS: Hematocrit 43.2 % (37.5-50.1); Immature Platelets 9.4 % (1.1-6.1); Mean Corpuscular Hemoglobin 28.6 pg (28.0-33.3); Mean Platelet Volume 12.1 fL (9.4-12.4); Red Blood Count 5.14 M/mcL (4.19-5.50); Red Cell Distribution Width 12.8 % (11.5-14.5)
[2016-11-04] MEDS: *HR* Heparin 5,000 UNIT/ML VIAL SQ SCH ×2 (06:07→17:24)
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
[2016-11-04 09:00] LABS: BUN/Creatinine Ratio 16 (6-26); Blood Urea Nitrogen 13 mg/dL (8-26); Calcium 8.2 mg/dL (8.6-10.8); Carbon Dioxide 21 mEq/L (19-29); Chloride 107 mEq/L (98-109); Glucose 100 mg/dL (70-99); Osmolality,Calculated 286 (280-300); Sodium 138 mEq/L (136-145); eGFR For African Americans > 60 (> 60); eGFR For Non-African Americans > 60 (> 60)
[2016-11-04 09:12] LABS: Magnesium 1.9 mg/dL (1.6-2.6)
[2016-11-04 09:22] LABS: Potassium 3.2 mEq/L (3.5-4.5)
[2016-11-04] MEDS ORDERED: Potassium Chloride 40 MEQ, Lidocaine 1% 2 ML in D5% in Water 500 ML IVPB ONE (11:13)
[2016-11-04] MEDS ORDERED: Magnesium Sulfate 2 GM in D5% in Water 100 ML IVPB ONE (11:13)
[2016-11-04] MEDS ORDERED: D5% in 0.45% NACL 1,000 ML IVC SCH (11:15)
[2016-11-04] MEDS: Aspirin 325 MG TABLET PO SCH (11:26)
[2016-11-04] MEDS: Levofloxacin 750 MG/150 ML 750 MG/150 ML BAG IVPB SCH (11:33)
[2016-11-04] MEDS: D5% in 0.45% NACL w KCl 20 MEQ/1,000 ML MLS IVC SCH (17:27)
[2016-11-05] MEDS: Piperacillin/Tazobactam 3.375 GM in D5% in Water (Mini-Bag+) 100 ML IVPB SCH ×3 (02:37→17:11)
[2016-11-05] MEDS: *HR* LORazepam 2 MG/ML VIAL IVP PRN ×3 (02:37→23:05)
[2016-11-05] MEDS: Latanoprost 2.5 ML BOTTLE BOTH EYES SCH ×2 (02:38→21:09)
[2016-11-05 06:23] LABS: Monocytes % 17.8 %
[2016-11-05 06:25] LABS: Basophils % 0.5 %; Eosinophils # 0.1 K/mcL (0.0-0.6); Hematocrit 40.9 % (37.5-50.1); Hemoglobin 13.8 g/dL (12.9-16.9); Immature Granulocytes % 0.2 % (0-4); Immature Platelets 9.2 % (1.1-6.1); Lymphocytes # 1.8 K/mcL (0.6-4.6); Lymphocytes % 30.7 %; Mean Corpuscular HGB Conc 33.7 g/dL (31.6-35.5); Mean Corpuscular Hemoglobin 28.3 pg (28.0-33.3); Mean Platelet Volume 12.7 fL (9.4-12.4); Red Blood Count 4.87 M/mcL (4.19-5.50); Red Cell Distribution Width 12.9 % (11.5-14.5); Segmented Neutrophils % 49.8 %
[2016-11-05 06:30] LABS: Neutrophils # 2.8 K/mcL (1.6-8.9); Platelet Count 94 K/mcL (140-400)
[2016-11-05 06:35] LABS: BUN/Creatinine Ratio 11 (6-26); Blood Urea Nitrogen 10 mg/dL (8-26); Calcium 8.2 mg/dL (8.6-10.8); Carbon Dioxide 23 mEq/L (19-29); Chloride 107 mEq/L (98-109); Glucose 114 mg/dL (70-99); Magnesium 1.7 mg/dL (1.6-2.6); Osmolality,Calculated 292 (280-300); Potassium 3.2 mEq/L (3.5-4.5); Sodium 141 mEq/L (136-145); eGFR For African Americans > 60 (> 60); eGFR For Non-African Americans > 60 (> 60)
[2016-11-05] MEDS: *HR* Heparin 5,000 UNIT/ML VIAL SQ SCH ×2 (06:44→17:19)
[2016-11-05] MEDS: D5% in 0.45% NACL w KCl 20 MEQ/1,000 ML MLS IVC SCH ×2 (06:44→17:12)
[2016-11-05] MEDS: Famotidine 20 MG/2 ML VIAL IVP SCH ×2 (06:45→17:11)
[2016-11-05] MEDS ORDERED: Potassium Chloride 40 MEQ, Lidocaine 1% 2 ML in D5% in Water 500 ML IVPB ONE (07:03)
[2016-11-05] MEDS: Magnesium Sulfate 2 GM in D5% in Water 100 ML IVPB SCH ×2 (07:29→11:55)
[2016-11-05] MEDS: *HR* Labetalol 20 MG/4 ML SYRINGE IVP PRN ×2 (09:09→16:09)
[2016-11-05] MEDS: Levofloxacin 750 MG/150 ML 750 MG/150 ML BAG IVPB SCH (09:10)
[2016-11-05] MEDS: Aspirin 325 MG TABLET PO SCH (09:20)
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
--- NOTE | 2016-11-05 17:30 | Neurology Progress Note ---
Date of Encounter: 11/05/16 Time of Encounter: 17:25 Assessment and Plan (1) CVA (cerebral vascular accident) Current Visit: No Status: Acute Pt. remains somnolent, not following commands. Will recheck CT brain to r/o hemorrhagic transformation of infarct. Will check metabilic w/u, check EEG. Qualifiers: CVA mechanism: stenosis Precerebral and cerebral artery: posterior cerebral artery Laterality of affected vessel: left Qualified Code(s): I63.532 - Cerebral infarction due to unspecified occlusion or stenosis of left posterior cerebral artery Subjective Principal diagnosis: altered mental status Interval history: The chart was reviewed, patient was seen and examined. Case was discussed with hospitalist. Pt. remains somnolent and difficult to arouse, somewhat agitated. Pt., not following commands, moan when stimulated. Pupils reactive, no focal findings on neuro exam. Objective - Constitutional Vitals: Temp Pulse Resp BP Pulse Ox 100 F H 87 16 239/108 96 11/05/16 15:27 11/05/16 15:27 11/05/16 15:27 11/05/16 15:27 11/05/16 15:27 - Neurological Exam Sensorimotor examination: Present: other (Unable to assess no gross motor defecit, limited neurological exam due to sedation) Motor Examination: Present: grossly full strength in all extremities, other ( Grossly intact. Unable to assess more accurately due to sedation) Sensation intact: Present: other (Unable to assess due to sedation) Posture: Present: other (None) Reflex and gait examination: other (Gait not tested) Mental Status Examination: Present: awake, alert, does not follow commands, delerious, agitated, opens eyes to voice, opens eyes to noxious stimulation, makes eye contact, inattentive Cranial nerve examination: Present: PERRL, EOMI (appears full, more to the right side. No nystagmus), visual salgado intact, corneal reflexes brisk symmetrically, sensory to face intact (unable to assess), mastication intact, no facial asymmetry is present, no dysarthria (Dysarthric, unable to decipher what he is saying), hearing is intact symmetrically, soft palate elevates bilaterally upon phonation, gag reflex intact, flexes SCM and trapezius muscles symmetrically with full power, tongue protrudes midline (Unable to assess due to sedation), no atrophy or facial fasiculations present (Not assessed) Additional comments: Pt. without spontaneous eye opening. Results - Laboratory Findings CBC and BMP: 11/05/16 05:07 11/05/16 05:07 Abnormal lab findings: Abnormal lab results Plt Count 94 K/mcL (140-400) L 11/05/16 05:07 MPV 12.7 fL (9.4-12.4) H 11/05/16 05:07 Immature Plt Fraction 9.2 % (1.1-6.1) H 11/05/16 05:07 PT 12.5 Seconds (9.4-12.1) H 11/03/16 05:59 Potassium 3.2 mEq/L (3.5-4.5) L 11/05/16 05:07 Glucose 114 mg/dL (70-99) H 11/05/16 05:07 POC Glucose 126 (58-89) H 11/04/16 16:13 Calcium 8.2 mg/dL (8.6-10.8) L 11/05/16 05:07 AST 41 Units/L (5-34) H 11/03/16 05:59 Albumin 3.0 g/dL (3.5-5.0) L 11/03/16 05:59 Albumin/Globulin Ratio 1.0 (1.1-2.2) L 11/03/16 05:59 Cholesterol 228 mg/dL (< 200) H 10/29/16 21:07 LDL Cholesterol, Calc 169 mg/dL (0-99) H 10/29/16 21:07 HDL Cholesterol 35 mg/dL (40-59) L 10/29/16 21:07 Cholesterol/HDL Ratio 6.5 (0-4.9) H 10/29/16 21:07 Urine Clarity Cloudy (Clear) A 11/01/16 23:00 Urine Protein >=300 mg/dL (Neg-Trace) H 11/01/16 23:00 Urine Ketones 40 mg/dL (Negative) H 11/01/16 23:00 Urine Blood Large (Negative) H 11/01/16 23:00 Urine Bilirubin Small (Negative) H 11/01/16 23:00 Urine Microscopic RBC TNTC per hpf (0-3) H 11/01/16 23:00 Urine Microscopic WBC 5-15 per hpf (0-3) H 11/01/16 23:00 Ur Squamous Epith Cells Many per lpf (None-Few) H 11/01/16 23:00 Ur Renal Epithelial Cell Moderate per hpf (None-Few) H 11/01/16 23:00 Urine Yeast Few per hpf (None Seen) H 11/01/16 23:00 Ur Culture Indicated? YES (NO) A 11/01/16 23:00 Consult Discharge Plan - Plan Referrals: NO,PCP [Primary Care Provider] -
[2016-11-05 19:12] LABS: Alanine Aminotransferase 28 Units/L (0-55); Aspartate Amino Transferase 38 Units/L (5-34)
[2016-11-06] MEDS: Piperacillin/Tazobactam 3.375 GM in D5% in Water (Mini-Bag+) 100 ML IVPB SCH ×3 (03:40→18:57)
[2016-11-06 05:22] LABS: Basophils # 0.1 K/mcL (0.0-0.2); Basophils % 0.7 %; Eosinophils # 0.1 K/mcL (0.0-0.6); Eosinophils % 1.5 %; Hematocrit 43.6 % (37.5-50.1); Hemoglobin 14.9 g/dL (12.9-16.9); Immature Granulocytes % 0.1 % (0-4); Lymphocytes # 2.5 K/mcL (0.6-4.6); Mean Corpuscular HGB Conc 34.2 g/dL (31.6-35.5); Mean Corpuscular Hemoglobin 28.5 pg (28.0-33.3); Mean Corpuscular Volume 83.5 fL (83.0-100.0); Mean Platelet Volume 12.1 fL (9.4-12.4); Monocytes # 1.1 K/mcL (0.0-1.3); Monocytes % 14.3 %; Neutrophils # 3.7 K/mcL (1.6-8.9); Platelet Count 126 K/mcL (140-400); Red Blood Count 5.22 M/mcL (4.19-5.50); Segmented Neutrophils % 49.4 %
[2016-11-06 05:45] LABS: BUN/Creatinine Ratio 10 (6-26); Blood Urea Nitrogen 9 mg/dL (8-26); Calcium 8.5 mg/dL (8.6-10.8); Carbon Dioxide 22 mEq/L (19-29); Chloride 105 mEq/L (98-109); Glucose 134 mg/dL (70-99); Magnesium 1.7 mg/dL (1.6-2.6); Osmolality,Calculated 283 (280-300); Potassium 3.5 mEq/L (3.5-4.5); Sodium 136 mEq/L (136-145); eGFR For African Americans > 60 (> 60); eGFR For Non-African Americans > 60 (> 60)
[2016-11-06] MEDS: *HR* Heparin 5,000 UNIT/ML VIAL SQ SCH ×2 (07:03→23:57)
[2016-11-06] MEDS: Famotidine 20 MG/2 ML VIAL IVP SCH ×2 (07:04→18:56)
[2016-11-06] MEDS: D5% in 0.45% NACL w KCl 20 MEQ/1,000 ML MLS IVC SCH ×2 (07:05→18:57)
--- NOTE | 2016-11-06 08:12 | General Surgery Progress Note ---
Date of Encounter: 11/06/16 Time of Encounter: 07:20 - Assessment and Plan (1) Dysphagia due to recent cerebral infarction Current Visit: Yes Status: Acute Patient is NPO. PEG tube to be placed this afternoon. Risks, benefits, alternatives and expected outcomes of percutaneous feeding tube placement discussed yesterday with patient's POA (Ashleezachary Copeland) and she was agreeable to the procedure. IV fluids. Patient is on Zosyn and Levaquin. Platelets 126 (2) Nutrient intake below expected requirement Current Visit: Yes Status: Acute Plan for PEG tube placement this afternoon. Tobacco Farmworker consulted for tube feeing recommendations. (3) CVA (cerebral vascular accident) Current Visit: Yes Status: Acute Management per medicine team. Qualifiers: CVA mechanism: stenosis Precerebral and cerebral artery: posterior cerebral artery Laterality of affected vessel: left Qualified Code(s): I63.532 - Cerebral infarction due to unspecified occlusion or stenosis of left posterior cerebral artery (4) AA (alcohol abuse) Current Visit: Yes Status: Chronic Subjective Narrative: The patient remains non-responsive to verbal stimuli and is unable to answer questions. He does respond to painful stimuli in all four extremities. Objective Vital Signs - Last 8 Hours Temp Pulse Resp BP Pulse Ox 11/06/16 07:54 98 F 99 16 166/102 97 11/06/16 04:03 97.3 F L 89 20 153/95 94 L 11/06/16 00:22 97.9 F 95 20 140/83 95 Intake and Output 11/05/16 11/06/16 11/06/16 23:59 07:59 15:59 Intake Total 1100 / 1100 1000 / 1000 Output Total 500 / 500 650 / 650 Balance 600 / 600 350 / 350 Intake: IV Fluids 1100 / 1100 1000 / 1000 KCl 20mEq IN D5%-0.45 1000 / 1000 1000 / 1000 NACL 20 meq In 1,000 ml @ 100 mls/hr IVC .Q10H [facility] Rx#:[id number] Zosyn 3.375 GM In 100 / 100 Dextrose 5% (Minibag+) 100 ML 100 ML @ 25 mls/hr IVPB Q8H [facility] Rx#: [id number] Oral 0 / 0 0 / 0 Output: Catheter 500 / 500 650 / 650 Other: # Voids 0 Weight 81.9 kg Blood Glucose* 121 112 Patient Weight 11/06/16 23:59 Weight 81.9 kg - General physical appearance well developed, well nourished - Eyes other (Does not open eyes spontaneously or to verbal commands) - ENT dry mucosa, atraumatic - Neck Neck exam: trachea midline - Respiratory normal respiratory effort, clear to auscultation - Cardiovascular Cardiovascular exam: Present: irregular rhythm - Abdomen Abdomen: Present: bowel sounds present, soft, non tender - Integumentary no rash - Neurologic other (unable to assess) - Musculoskeletal other (unable to assess) - Psychiatric other (unable to assess) - Labs 11/06/16 04:39 11/06/16 04:39 Diabetes panel 11/05/16 11/06/16 Range/Units 18:49 04:39 Sodium 136 (136-145) mEq/L Potassium 3.5 (3.5-4.5) mEq/L Chloride 105 (98-109) mEq/L Carbon Dioxide 22 (19-29) mEq/L BUN 9 (8-26) mg/dL Creatinine 0.88 (0.72-1.25) mg/dL Glucose 134 H (70-99) mg/dL Calcium 8.5 L (8.6-10.8) mg/dL AST 38 H (5-34) Units/L ALT 28 (0-55) Units/L Thyroid panel 11/05/16 Range/Units 18:49 TSH 3.920 (0.350-4.840) mcIU/mL Calcium panel 11/05/16 11/06/16 Range/Units 14:53 04:39 Calcium 8.5 L (8.6-10.8) mg/dL Phosphorus 3.7 (2.3-4.7) mg/dL Pituitary panel 11/05/16 11/06/16 Range/Units 18:49 04:39 Sodium 136 (136-145) mEq/L Potassium 3.5 (3.5-4.5) mEq/L Chloride 105 (98-109) mEq/L Carbon Dioxide 22 (19-29) mEq/L BUN 9 (8-26) mg/dL Creatinine 0.88 (0.72-1.25) mg/dL Glucose 134 H (70-99) mg/dL Calcium 8.5 L (8.6-10.8) mg/dL TSH 3.920 (0.350-4.840) mcIU/mL Adrenal panel 11/05/16 11/06/16 Range/Units 18:49 04:39 Sodium 136 (136-145) mEq/L Potassium 3.5 (3.5-4.5) mEq/L Chloride 105 (98-109) mEq/L Carbon Dioxide 22 (19-29) mEq/L BUN 9 (8-26) mg/dL Creatinine 0.88 (0.72-1.25) mg/dL Glucose 134 H (70-99) mg/dL Calcium 8.5 L (8.6-10.8) mg/dL AST 38 H (5-34) Units/L ALT 28 (0-55) Units/L Consult Discharge Plan - Plan Referrals: NO,PCP [Primary Care Provider] - - Attending Attestation I examined this patient and my medical decision-making was reviewed with the DIRECTOR OF SOCIAL MEDIA MARKETING/PA/Advanced Practice Nurse/Resident Physician. I agree with the documented findings, disposition and treatment plan as described except to the extent set forth below.
[2016-11-06] MEDS: Levofloxacin 750 MG/150 ML 750 MG/150 ML BAG IVPB SCH (08:36)
[2016-11-06] MEDS: Aspirin 325 MG TABLET PO SCH (08:43)
[2016-11-06] MEDS ORDERED: *HR* Morphine 2 MG/ML SYRINGE IVP ONE (10:42)
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
--- NOTE | 2016-11-06 16:04 | EEG/EMG/Oth Biometrics Report ---
EEG Procedure Report Date of procedure: 11/06/16 EEG Procedure: Routine EEG Procedure Note: This is a report of a 21 channel bipolar and referential montage EEG. There is no posterior dominant alpha rhythm identified during the recording. The posterior leads reflect low voltage mixed theta and delta frequencies. However there is diffuse beta frequency identified in the frontal leads bilaterally. The patient appears to be uncomfortable during the study reflected by the technicians. Movement artifact is present throughout much of the study. There is no normal sleep sleep architecture identified during the recording. Photic stimulation is performed and does not produce a driving response. The EKG rhythm strip reveals sinus rhythm at 96 bpm. Impressions: This EEG recording is abnormal and is reflective of moderate to severe generalized encephalopathy. There is no evidence of epileptiform activity identified during the study. There are no lateralizing features identified in the study. Etiologies of this interpretation might include toxic ; metabolic; postictal and degenerative. Comment: Motor frequencies are recognized as a normal variant, however may also be reflective of a posterior metabolic conditions, anxiety, and medication effect particularly benzodiazepines and barbiturates. The documentation in the history of HPI and plan were at least partially created by [employer] voice recognition technology by Dr. Nye. Errors in grammar, wording or other phrases may exist. If errors are found after the documentation signed, they will be addressed individually in the addendum section of this document when appropriate.
[2016-11-06] MEDS ORDERED: *HR* Midazolam HCl 5 MG/5 ML VIAL IVP ONE (16:14)
[2016-11-06] MEDS ORDERED: *HR* FentaNYL (PF) 100 MCG/2 ML VIAL ONE (16:15)
[2016-11-06] MEDS ORDERED: 0.9 % Sodium Chloride 1,000 ML IVC SCH (16:15)
[2016-11-06] MEDS ORDERED: 0.9 % Sodium Chloride 500 ML IVC SCH (16:30)
[2016-11-06] MEDS ORDERED: *HR* Midazolam HCl 5 MG/5 ML VIAL IVP PRN (17:28)
[2016-11-06] MEDS ORDERED: Simethicone 40 MG/0.6 ML MLS IR ONE (17:28)
--- NOTE | 2016-11-06 17:28 | Pre-Sedation Evaluation ---
Pre-sedation evaluation - Pre-sedation checklist Date of procedure: 11/06/16 Procedure: peg placemnt Recent Vitals: Last Vital Signs Temp 98 F 11/06/16 16:14 Pulse 92 11/06/16 16:14 Resp 18 11/06/16 16:14 BP 156/74 11/06/16 16:14 Pulse Ox 96 11/06/16 16:14 H&P (including ROS) documented in medical record: Yes Previous reaction to sedatives/anesthetics: Unknown Dietary Status: NPO after Midnight Dentition: full dentition Possible difficult airway: No ASA Classification *see protocol: CLASS IV-Severe systemic disease/constant threat to pt's life
[2016-11-06] MEDS: *HR* FentaNYL (PF) 100 MCG/2 ML VIAL IVP PRN ×2 (17:32→17:33)
--- NOTE | 2016-11-06 18:08 | Neurology Progress Note ---
Date of Encounter: 11/06/16 Time of Encounter: 18:03 Assessment and Plan (1) CVA (cerebral vascular accident) Current Visit: No Status: Inactive Pt. seems to be some better in comparison to days prior. Some of the lethargy may be due to left hemispheric edema and dysfunction of the infarcted left occipital lobe. The is no massive edema or threat of herniation. The effects of the benzo's may be lingering as the EEG shows a variant consistent with this. I will continue to follow. If not significantly improved tomorrow, consider mannitol 70g x 1, and perhaps romazicon and Narcan to reverse sedation. We will follow The documentation in the history of HPI and plan were at least partially created by [employer] recognition technology by Dr. Nye. Errors in grammar, wording or other phrases may exist. If errors are found after the documentation signed, they will be addressed individually in the addendum section of this document when appropriate. Qualifiers: CVA mechanism: stenosis Precerebral and cerebral artery: posterior cerebral artery Laterality of affected vessel: left Qualified Code(s): I63.532 - Cerebral infarction due to unspecified occlusion or stenosis of left posterior cerebral artery Subjective Principal diagnosis: altered mental status Interval history: Chart reviewed, patient was seen and examined case discussed with hospitalist as well as with nursing. Pt today was a bit more arousable, not very conversant , but is c/o back pain. This was neurologically improved in comparison to yesterday. However he has just returned from a procedure where he was given Versed and fentanyl and he is sedated once again at the time of my assessment. CT of brain was reviewed. I do feel that there is a bit of hemorrhagic transformation, however no severe mass effect is present. Overall his status is improved, but far from baseline. I did interpret the EEG today which shows moderate/ severe generalized encephalopathy along with an increase in beta activity which is likely due to the effects of the benzodiazepines. Part of his lethargy may be due to lingering effects of benzo's. Objective - Constitutional Vitals: Temp Pulse Resp BP Pulse Ox 98 F 88 16 186/78 96 11/06/16 17:53 11/06/16 17:53 11/06/16 17:53 11/06/16 17:53 11/06/16 17:53 - Neurological Exam Sensorimotor examination: Present: other Motor Examination: Present: other (He has equal tone of the upper and lower extremities no involuntary movements are identified) Mental Status Examination: Present: lethargic (Patient was just sedated for procedure.), opens eyes to voice (He does not however maintain eye contact and quickly reverts into unconsciousness.), inattentive Cranial nerve examination: Present: PERRL Results - Laboratory Findings CBC and BMP: 11/06/16 04:39 11/06/16 04:39 Abnormal lab findings: Abnormal lab results Plt Count 126 K/mcL (140-400) L 11/06/16 04:39 Immature Plt Fraction 9.2 % (1.1-6.1) H 11/05/16 05:07 PT 12.5 Seconds (9.4-12.1) H 11/03/16 05:59 Glucose 134 mg/dL (70-99) H 11/06/16 04:39 POC Glucose 112 (58-89) H 11/06/16 12:39 Calcium 8.5 mg/dL (8.6-10.8) L 11/06/16 04:39 AST 38 Units/L (5-34) H 11/05/16 18:49 Albumin 3.0 g/dL (3.5-5.0) L 11/03/16 05:59 Albumin/Globulin Ratio 1.0 (1.1-2.2) L 11/03/16 05:59 Cholesterol 228 mg/dL (< 200) H 10/29/16 21:07 LDL Cholesterol, Calc 169 mg/dL (0-99) H 10/29/16 21:07 HDL Cholesterol 35 mg/dL (40-59) L 10/29/16 21:07 Cholesterol/HDL Ratio 6.5 (0-4.9) H 10/29/16 21:07 Urine Clarity Cloudy (Clear) A 11/01/16 23:00 Urine Protein >=300 mg/dL (Neg-Trace) H 11/01/16 23:00 Urine Ketones 40 mg/dL (Negative) H 11/01/16 23:00 Urine Blood Large (Negative) H 11/01/16 23:00 Urine Bilirubin Small (Negative) H 11/01/16 23:00 Urine Microscopic RBC TNTC per hpf (0-3) H 11/01/16 23:00 Urine Microscopic WBC 5-15 per hpf (0-3) H 11/01/16 23:00 Ur Squamous Epith Cells Many per lpf (None-Few) H 11/01/16 23:00 Ur Renal Epithelial Cell Moderate per hpf (None-Few) H 11/01/16 23:00 Urine Yeast Few per hpf (None Seen) H 11/01/16 23:00 Ur Culture Indicated? YES (NO) A 11/01/16 23:00 Consult Discharge Plan - Plan Referrals: NO,PCP [Primary Care Provider] -
[2016-11-06] MEDS: Latanoprost 2.5 ML BOTTLE BOTH EYES SCH (23:58)
[2016-11-07] MEDS: Piperacillin/Tazobactam 3.375 GM in D5% in Water (Mini-Bag+) 100 ML IVPB SCH (00:40)
[2016-11-07 04:59] LABS: Immature Granulocytes % 0.2 % (0-4); Mean Platelet Volume 12.5 fL (9.4-12.4)
[2016-11-07 05:01] LABS: Basophils % 0.2 %; Eosinophils % 0.4 %; Hematocrit 40.9 % (37.5-50.1); Hemoglobin 13.7 g/dL (12.9-16.9); Immature Platelets 9.7 % (1.1-6.1); Lymphocytes # 2.2 K/mcL (0.6-4.6); Lymphocytes % 27.2 %; Mean Corpuscular HGB Conc 33.5 g/dL (31.6-35.5); Mean Corpuscular Hemoglobin 28.7 pg (28.0-33.3); Mean Corpuscular Volume 85.6 fL (83.0-100.0); Monocytes # 0.8 K/mcL (0.0-1.3); Monocytes % 9.8 %; Platelet Count 100 K/mcL (140-400); Red Blood Count 4.78 M/mcL (4.19-5.50); Segmented Neutrophils % 62.2 %
[2016-11-07] MEDS: *HR* Heparin 5,000 UNIT/ML VIAL SQ SCH ×2 (06:50→17:44)
[2016-11-07] MEDS: Famotidine 20 MG/2 ML VIAL IVP SCH (06:50)
[2016-11-07 07:25] LABS: BUN/Creatinine Ratio 11 (6-26); Blood Urea Nitrogen 12 mg/dL (8-26); Calcium 8.6 mg/dL (8.6-10.8); Carbon Dioxide 23 mEq/L (19-29); Chloride 106 mEq/L (98-109); Glucose 121 mg/dL (70-99); Magnesium 1.6 mg/dL (1.6-2.6); Osmolality,Calculated 287 (280-300); Potassium 4.8 mEq/L (3.5-4.5); Sodium 138 mEq/L (136-145); eGFR For African Americans > 60 (> 60); eGFR For Non-African Americans > 60 (> 60)
[2016-11-07] MEDS: D5% in 0.45% NACL w KCl 20 MEQ/1,000 ML MLS IVC SCH ×2 (07:53→20:43)
[2016-11-07] MEDS: *HR* Morphine 2 MG/ML SYRINGE IVP PRN (08:38)
--- NOTE | 2016-11-07 09:50 | Internal Med Progress Note ---
<Moisés Carter - Last Filed: 11/07/16 09:46> Date of Encounter: 11/07/16 Time of Encounter: 09:50 - Assessment and plan (1) CVA (cerebral vascular accident) Current Visit: No Status: Inactive Assessment and plan: 81 y/o admitted for left posterior infarct. Patient's mental status has improved from yesterday. He is responding to his name. He attempts to answer questions. When asked if patient can see me, he states yes. He follows simple commands of raising his arms. Patient seems very agitated at times which may be due to pain as he seems uncomfortable in certain position. He is receiving morphine 1mg PRN Q6h for this. We will continue aspirin and statin Repeat CT shows evolution of infarct. There is no evidence of massive edema or threat of herniation. Appreciate input from Neurology. Qualifiers: CVA mechanism: stenosis Precerebral and cerebral artery: posterior cerebral artery Laterality of affected vessel: left Qualified Code(s): I63.532 - Cerebral infarction due to unspecified occlusion or stenosis of left posterior cerebral artery (2) AA (alcohol abuse) Current Visit: Yes Status: Resolved Assessment and plan: Patient had stated he drinks whiskely daily. He withdraws to painful stimuli and opens eyes with sternal rub. Patient continues to be somnolent Patient is off of CIWA protocol and on 2 mg of Ativan Q2H for agitation. HR is regular, no evidence of tremors or diaphoresis. His mental status is more likely from his brain injury 2nd to CVA. Patient will be continued on Ativan for agitation. We will remove his gill today as it bothers him. His agitation may be 2nd to inadequate nutrition, possible visual deficit from posterior stroke, as well as hx of difficulty hearing. (3) DVT prophylaxis Current Visit: Yes Status: Acute Assessment and plan: -Continue heparin for anticoagulation. (4) Hypertension Current Visit: Yes Status: Acute Assessment and plan: Patient's blood pressure continues to be labile. Systolic >180s. It appears this can be 2nd to pain, agitation as patient seems uncomfortable in bed and appears to be in pain. We will continue morphine and ativan. However, it is uncertain due to his inability to express it. We will continue hydralazine PRN. Qualifiers: Hypertension type: other secondary hypertension Qualified Code(s): I15.8 - Other secondary hypertension (5) Nutrient intake below expected requirement Current Visit: Yes Status: Acute Assessment and plan: Peg tube is in place. Patient has nutrition on board. Waiting for surgery ok to start tube feeds. - Subjective Interval history: This morning patient was more active, awake. He is responding to his name. He if following simple commands. Patient had peg tube placement yesterday. Tube feeds will be started today. - Constitutional Vitals: Temp Pulse Resp BP Pulse Ox 99.5 F 114 18 196/116 94 L 11/07/16 07:30 11/07/16 07:30 11/07/16 07:30 11/07/16 07:30 11/07/16 07:30 General appearance: Present: A&O X 2. Absent: answers questions appropriately - Head Head exam: Present: atraumatic, normocephalic - Eye Eye exam: Present: PERRL, conjuntiva pink, sclera anicteric - Neck Neck exam general surgery: Present: supple, trachea midline. Absent: lymphadenopathy - Respiratory Respiratory exam: Present: CTAB. Absent: accessory muscle use, rales, rhonchi, wheezes - Cardiovascular Cardiovascular exam: Present: +S1, +S2, tachycardia. Absent: diastolic murmur, gallop, rubs, systolic murmur - GI/Abdominal GI/Abdominal exam: Present: normal bowel sounds, soft, no peritoneal signs. Absent: distended, tenderness Additional comments: Peg tube in place. No evidence of erythema. Site normal and intact. - Extremities Exam Extremities exam: Present: warm, radial pulses palpable and symetrical. Absent : calf tenderness, cyanotic, pedal edema - Neurological Exam Neurological exam: Present: alert. Absent: pronater drift, facial droop, speech deficit Additional comments: Patient seems agitated. But resonds to name. He tries to answer questions but cannot get words out at times. He follows simple commands such as raise your hand, lower your hand. - Skin Skin exam: Present: dry, intact Internal Medicine: Result - Labs CBC & Chem 7: 11/07/16 04:09 11/07/16 09:13 Labs: Short CBC 11/07/16 Range/Units 04:09 WBC 8.1 (4.3-11.1) K/mcL Hgb 13.7 (12.9-16.9) g/dL Hct 40.9 (37.5-50.1) % Plt Count 100 L (140-400) K/mcL Neutrophils # 5.0 (1.6-8.9) K/mcL BMP 11/07/16 11/07/16 06:34 09:13 Sodium 138 Potassium 4.8 H D 3.7 D Chloride 106 Carbon Dioxide 23 BUN 12 Creatinine 1.11 Glucose 121 H Calcium 8.6 - ABG Interpretation ABG results: PT/INR, D-dimer PT 12.5 Seconds (9.4-12.1) H 11/03/16 05:59 - Impressions Impressions Lumbar Spine X-Ray 11/06/16 17:08 IMPRESSION: No acute osseous abnormality. D/ / Wiliam Richardson MD / Wiliam Richardson MD Interpreting Provider: Wiliam Richardson MD Pelvis X-Ray 11/06/16 17:08 IMPRESSION: 1. No acute osseous abnormality of the pelvis identified. D/ / 11/06/2016 22:31:09 Vickie Cochran MD / [facility] Interpreting Provider: Vickie Cochran MD Thoracic Spine X-Ray 11/06/16 17:08 IMPRESSION: No acute osseous abnormality. D/ / Wiliam Richardson MD / Wiliam Richardson MD Interpreting Provider: Wiliam Richardson MD Consult Discharge Plan - Plan Referrals: NO,PCP [Primary Care Provider] - <Prakash Rock - Last Filed: 11/07/16 15:56> - Assessment and plan (1) CVA (cerebral vascular accident) Current Visit: No Status: Inactive Qualifiers: CVA mechanism: embolism Precerebral and cerebral artery: posterior cerebral artery Laterality of affected vessel: left Qualified Code(s): I63.432 - Cerebral infarction due to embolism of left posterior cerebral artery (2) Acute metabolic encephalopathy Current Visit: Yes Status: Acute (3) Hypertension Current Visit: Yes Status: Acute Qualifiers: Hypertension type: other secondary hypertension Qualified Code(s): I15.8 - Other secondary hypertension (4) Agitation Current Visit: Yes Status: Acute (5) Poor nutrition Current Visit: Yes Status: Acute (6) Glaucoma Current Visit: Yes Status: Acute Qualifiers: Glaucoma type: unspecified type Laterality: bilateral Qualified Code(s): H40.9 - Unspecified glaucoma - Constitutional Vitals: Temp Pulse Resp BP Pulse Ox 99.2 F 87 16 160/84 96 11/07/16 15:31 11/07/16 15:31 11/07/16 15:31 11/07/16 15:31 11/07/16 15:31 Internal Medicine: Result - Labs CBC & Chem 7: 11/07/16 04:09 11/07/16 09:13 Labs: Short CBC 11/07/16 Range/Units 04:09 WBC 8.1 (4.3-11.1) K/mcL Hgb 13.7 (12.9-16.9) g/dL Hct 40.9 (37.5-50.1) % Plt Count 100 L (140-400) K/mcL Neutrophils # 5.0 (1.6-8.9) K/mcL BMP 11/07/16 11/07/16 06:34 09:13 Sodium 138 Potassium 4.8 H D 3.7 D Chloride 106 Carbon Dioxide 23 BUN 12 Creatinine 1.11 Glucose 121 H Calcium 8.6 - ABG Interpretation ABG results: PT/INR, D-dimer PT 12.5 Seconds (9.4-12.1) H 11/03/16 05:59 - Impressions Impressions Lumbar Spine X-Ray 11/06/16 17:08 IMPRESSION: No acute osseous abnormality. D/ / Wiliam Richardson MD / Wiliam Richardson MD Interpreting Provider: Wiliam Richardson MD Pelvis X-Ray 11/06/16 17:08 IMPRESSION: 1. No acute osseous abnormality of the pelvis identified. D/ / 11/06/2016 22:31:09 Vickie Cochran MD / [facility] Interpreting Provider: Vickie Cochran MD Thoracic Spine X-Ray 11/06/16 17:08 IMPRESSION: No acute osseous abnormality. D/ / Wiliam Richardson MD / Wiliam Richardson MD Interpreting Provider: Wiliam Richardson MD - Attending Attestation I examined this patient and my medical decision-making was reviewed with the Resident Physician on 11/07/16. I agree with the documented findings, disposition and treatment plan as described except to the extent set forth below. Mr Crawford is currently admitted for acute CVA and subsequent encephalopathy. BP remains intermittently elevated. He is high risk due to continued neurologic issues. PEG placed yesterday and tube feeds to start today. Mr. Crawford seems more alert and following some commands today. PEG without issue yesterday. Exam Alert. Opens eyes to name. Follows simple commands Mucus membranes dry Heart reg Lungs with scattered rhonchi I/P 1. CVA - seems to be a little better today. Has been accepted for rehab. 2. Nutrition - PEG feeds to start today. 3. Acute encephalopathy Further diagnoses and plan as above.
--- NOTE | 2016-11-07 10:26 | General Surgery Progress Note ---
Date of Encounter: 11/07/16 Time of Encounter: 10:00 - Assessment and Plan (1) Dysphagia due to recent cerebral infarction Current Visit: Yes Status: Acute Post op day #1 status post PEG tube placement. PEG tube in place and secure at the 4cm maya. Nutrition has been consulted to begin tube feedings. IV fluids. Surgery will sign off at this time, thank you for involving us in this patient' s care, please feel free to contact us with any questions. Followup prn. (2) Nutrient intake below expected requirement Current Visit: Yes Status: Acute PEG tube placed yesterday. [employer] Librarian consulted for tube feeing recommendations. (3) CVA (cerebral vascular accident) Current Visit: Yes Status: Acute Management per medicine team. Some improvement noted today. Qualifiers: CVA mechanism: stenosis Precerebral and cerebral artery: posterior cerebral artery Laterality of affected vessel: left Qualified Code(s): I63.532 - Cerebral infarction due to unspecified occlusion or stenosis of left posterior cerebral artery (4) AA (alcohol abuse) Current Visit: Yes Status: Resolved Subjective Narrative: Patient unable to verbalize any complaints. Objective Vital Signs - Last 8 Hours Temp Pulse Resp BP Pulse Ox 11/07/16 07:30 99.5 F 114 18 196/116 94 L Intake and Output 11/06/16 11/07/16 11/07/16 23:59 07:59 15:59 Intake Total 1100 / 1100 1000 / 1000 Output Total 1300 / 1300 450 / 450 Balance -200 / -200 550 / 550 Intake: IV Fluids 1100 / 1100 1000 / 1000 KCl 20mEq IN D5%-0.45 1000 / 1000 1000 / 1000 NACL 20 meq In 1,000 ml @ 100 mls/hr IVC .Q10H [facility] Rx#:[id number] Zosyn 3.375 GM In 100 / 100 Dextrose 5% (Minibag+) 100 ML 100 ML @ 25 mls/hr IVPB Q8H [facility] Rx#: [id number] Oral 0 / 0 0 / 0 Output: Catheter 1300 / 1300 450 / 450 Other: # Voids 350 Weight 81.9 kg Blood Glucose* 113 95 - General physical appearance well developed, well nourished - Eyes other (opens eyes to hearing his name) - ENT dry mucosa - Respiratory normal respiratory effort, clear to auscultation - Cardiovascular Cardiovascular exam: Present: RRR - Abdomen Abdomen: Present: bowel sounds present, soft, non tender Additional Comments: PEG tube in place and secured at the 4cm maya without any surrounding erythema, induration, or drainage. - Integumentary no rash - Neurologic disoriented (Unable to state what month it is. When asked where he is, patient states "here".) - Psychiatric other (opens eyes to his name) - Labs 11/07/16 04:09 11/07/16 09:13 Diabetes panel 11/07/16 11/07/16 Range/Units 06:34 09:13 Sodium 138 (136-145) mEq/L Potassium 4.8 H D 3.7 D (3.5-4.5) mEq/L Chloride 106 (98-109) mEq/L Carbon Dioxide 23 (19-29) mEq/L BUN 12 (8-26) mg/dL Creatinine 1.11 (0.72-1.25) mg/dL Glucose 121 H (70-99) mg/dL Calcium 8.6 (8.6-10.8) mg/dL Calcium panel 11/07/16 Range/Units 06:34 Calcium 8.6 (8.6-10.8) mg/dL Pituitary panel 11/07/16 11/07/16 Range/Units 06:34 09:13 Sodium 138 (136-145) mEq/L Potassium 4.8 H D 3.7 D (3.5-4.5) mEq/L Chloride 106 (98-109) mEq/L Carbon Dioxide 23 (19-29) mEq/L BUN 12 (8-26) mg/dL Creatinine 1.11 (0.72-1.25) mg/dL Glucose 121 H (70-99) mg/dL Calcium 8.6 (8.6-10.8) mg/dL Adrenal panel 11/07/16 11/07/16 Range/Units 06:34 09:13 Sodium 138 (136-145) mEq/L Potassium 4.8 H D 3.7 D (3.5-4.5) mEq/L Chloride 106 (98-109) mEq/L Carbon Dioxide 23 (19-29) mEq/L BUN 12 (8-26) mg/dL Creatinine 1.11 (0.72-1.25) mg/dL Glucose 121 H (70-99) mg/dL Calcium 8.6 (8.6-10.8) mg/dL Consult Discharge Plan - Plan Referrals: NO,PCP [Primary Care Provider] - - Attending Attestation I examined this patient and my medical decision-making was reviewed with the BONE DENSITY TECHNICIAN/PA/Advanced Practice Nurse/Resident Physician. I agree with the documented findings, disposition and treatment plan as described except to the extent set forth below.
[2016-11-07] MEDS ORDERED: *HR* Labetalol 20 MG/4 ML SYRINGE IVP ONE (10:43)
[2016-11-07] MEDS: Pantoprazole 40 MG VIAL IVP SCH (11:56)
[2016-11-07] MEDS: Aspirin 325 MG TABLET GTUBE SCH (11:57)
--- NOTE | 2016-11-07 15:28 | Neurology Progress Note ---
Date of Encounter: 11/07/16 Time of Encounter: 15:26 Assessment and Plan (1) Occipital infarction Current Visit: Yes Status: Acute Overall the patient seems to be making slow neurologic improvement. My impression overall remains same. I believe that some of the lethargy may be due to left posterior dysfunction, also to be some delirium and medication effect. Was no evidence of non-convulsive status on the EEG. I simply recommend risk factor management. Maintain statins and antiplatelet therapy. I will reevaluate him at your request. The documentation in the history of HPI and plan were at least partially created by hiogi recognition technology by Dr. Nye. Errors in grammar, wording or other phrases may exist. If errors are found after the documentation signed, they will be addressed individually in the addendum section of this document when appropriate. Subjective Principal diagnosis: Left occipital infarct Interval history: Chart was reviewed, patient was seen and examined. Case was discussed with nursing.Present in the room without prepare to begin his tube feeding. It seems it he has periods of waxing and waning responsiveness. Overall however he is more alert for me today. He does open his eyes and grimaces he moves all 4 extremities although he does not follow commands. He is not fluent in his verbiage. He only gives 1 word answers us any answer at all. But he is not as lethargic as he had been. Objective - Constitutional Vitals: Temp Pulse Resp BP Pulse Ox 99.7 F H 92 16 194/96 96 11/07/16 11:59 11/07/16 11:59 11/07/16 11:59 11/07/16 11:59 11/07/16 11:59 - Neurological Exam Motor Examination: Present: other (He has equal tone of the upper and lower extremities no involuntary movements are identified) Reflex and gait examination: other (Gait not tested) Mental Status Examination: Present: opens eyes to voice, inattentive (Not really following commands very well.) Cranial nerve examination: Present: PERRL Results - Laboratory Findings CBC and BMP: 11/07/16 04:09 11/07/16 09:13 Abnormal lab findings: Abnormal lab results Plt Count 100 K/mcL (140-400) L 11/07/16 04:09 MPV 12.5 fL (9.4-12.4) H 11/07/16 04:09 Immature Plt Fraction 9.7 % (1.1-6.1) H 11/07/16 04:09 PT 12.5 Seconds (9.4-12.1) H 11/03/16 05:59 Glucose 121 mg/dL (70-99) H 11/07/16 06:34 POC Glucose 113 (58-89) H 11/06/16 19:41 AST 38 Units/L (5-34) H 11/05/16 18:49 Albumin 3.0 g/dL (3.5-5.0) L 11/03/16 05:59 Albumin/Globulin Ratio 1.0 (1.1-2.2) L 11/03/16 05:59 Cholesterol 228 mg/dL (< 200) H 10/29/16 21:07 LDL Cholesterol, Calc 169 mg/dL (0-99) H 10/29/16 21:07 HDL Cholesterol 35 mg/dL (40-59) L 10/29/16 21:07 Cholesterol/HDL Ratio 6.5 (0-4.9) H 10/29/16 21:07 Urine Clarity Cloudy (Clear) A 11/01/16 23:00 Urine Protein >=300 mg/dL (Neg-Trace) H 11/01/16 23:00 Urine Ketones 40 mg/dL (Negative) H 11/01/16 23:00 Urine Blood Large (Negative) H 11/01/16 23:00 Urine Bilirubin Small (Negative) H 11/01/16 23:00 Urine Microscopic RBC TNTC per hpf (0-3) H 11/01/16 23:00 Urine Microscopic WBC 5-15 per hpf (0-3) H 11/01/16 23:00 Ur Squamous Epith Cells Many per lpf (None-Few) H 11/01/16 23:00 Ur Renal Epithelial Cell Moderate per hpf (None-Few) H 11/01/16 23:00 Urine Yeast Few per hpf (None Seen) H 11/01/16 23:00 Ur Culture Indicated? YES (NO) A 11/01/16 23:00 Consult Discharge Plan - Plan Referrals: NO,PCP [Primary Care Provider] -
[2016-11-07] MEDS: Latanoprost 2.5 ML BOTTLE BOTH EYES SCH (20:20)
[2016-11-08] MEDS: *HR* Morphine 2 MG/ML SYRINGE IVP PRN (00:26)
[2016-11-08] MEDS: Aspirin 325 MG TABLET GTUBE SCH (08:39)
[2016-11-08] MEDS: *HR* Heparin 5,000 UNIT/ML VIAL SQ SCH ×2 (08:39→22:23)
--- NOTE | 2016-11-08 09:05 | Internal Med Progress Note ---
Date of Encounter: 11/08/16 Time of Encounter: 08:45 - Assessment and plan (1) CVA (cerebral vascular accident) Current Visit: No Status: Inactive Assessment and plan: Pt is more alert today. He is restless but follows simple commands. If remains OK overnight anticipate discharge to rehab tomorrow. Qualifiers: CVA mechanism: embolism Precerebral and cerebral artery: posterior cerebral artery Laterality of affected vessel: left Qualified Code(s): I63.432 - Cerebral infarction due to embolism of left posterior cerebral artery (2) Acute metabolic encephalopathy Current Visit: Yes Status: Acute Assessment and plan: Continues to be delirious but overall has been slowly improving. He is more awake each day. Will try some low dose Seroquel for his agitation today. (3) Hypertension Current Visit: Yes Status: Acute Assessment and plan: Blood pressure remains elevated today. Will make medication adjustments. Controlling agitation and pain helps. Qualifiers: Hypertension type: essential hypertension Qualified Code(s): I10 - Essential (primary) hypertension (4) Agitation Current Visit: Yes Status: Acute Assessment and plan: Starting low dose Seroquel today. (5) Poor nutrition Current Visit: Yes Status: Acute Assessment and plan: Tolerating tube feedings. Remains at high risk for refeeding syndrome. Electrolytes are normal at this time. Will follow again overnight. Increasing tube feed and should reach goal rate today. (6) Glaucoma Current Visit: Yes Status: Acute Assessment and plan: On eye drops. Qualifiers: Glaucoma type: unspecified type Laterality: bilateral Qualified Code(s): H40.9 - Unspecified glaucoma - Subjective Interval history: Mr. Crawford is currently admitted for acute CVA and encephalopathy. He remains high risk due to malnutrition, risk of refeeding syndrome and potential neurologic decline. Mr Crawford is more awake right now but very agitated and restless. He is speaking but does not make sense. Seems to be having low back pain. No fever or chills noted. He is unable to give me any more information at this time. - Constitutional Vitals: Temp Pulse Resp BP Pulse Ox 97.5 F L 97 16 189/100 97 11/08/16 07:00 11/08/16 07:00 11/08/16 07:00 11/08/16 07:00 11/08/16 07:00 General appearance: Absent: answers questions appropriately Exam: Restless and moving about in bed. Alert. Oriented to person. - Head Head exam: Present: normocephalic - Eye Eye exam: Present: conjuntiva pink - ENT ENT exam: Present: mucous membranes dry - Respiratory Respiratory exam: Present: decreased breath sounds, rhonchi. Absent: rales, wheezes - Cardiovascular Cardiovascular exam: Present: RRR. Absent: systolic murmur, tachycardia - GI/Abdominal GI/Abdominal exam: Present: soft. Absent: mass, tenderness Additional comments: Abdominal binder in place over PEG. No drainage noted. - Extremities Exam Extremities exam: Present: warm. Absent: pedal edema - Neurological Exam Neurological exam: Present: alert Additional comments: Follows simple commands. - Skin Skin exam: Present: dry, warm. Absent: rash Internal Medicine: Result - Labs CBC & Chem 7: 11/07/16 04:09 11/07/16 19:22 Labs: BMP 11/07/16 11/07/16 09:13 19:22 Potassium 3.7 D 3.7 - ABG Interpretation ABG results: PT/INR, D-dimer PT 12.5 Seconds (9.4-12.1) H 11/03/16 05:59 Consult Discharge Plan - Plan Referrals: NO,PCP [Primary Care Provider] -
[2016-11-08] MEDS ORDERED: D5% in 0.45% NACL w KCl 20 MEQ/1,000 ML MLS IVC SCH (09:18)
[2016-11-08] MEDS: Pantoprazole 40 MG VIAL IVP SCH (16:00)
[2016-11-08] MEDS ORDERED: MOM Conc 10 ML UD.LIQ GTUBE PRN (18:35)
[2016-11-08] MEDS ORDERED: Bisacodyl 10 MG RECTAL SUPPOSITORY RC PRN (18:35)
[2016-11-08] MEDS: Latanoprost 2.5 ML BOTTLE BOTH EYES SCH (22:01)
[2016-11-09 03:29] LABS: Hematocrit 40.6 % (37.5-50.1); Hemoglobin 13.3 g/dL (12.9-16.9); Mean Corpuscular HGB Conc 32.8 g/dL (31.6-35.5); Mean Corpuscular Hemoglobin 27.8 pg (28.0-33.3); Mean Corpuscular Volume 84.8 fL (83.0-100.0); Mean Platelet Volume 11.8 fL (9.4-12.4); Platelet Count 135 K/mcL (140-400); Red Blood Count 4.79 M/mcL (4.19-5.50); Red Cell Distribution Width 12.9 % (11.5-14.5)
[2016-11-09 03:43] LABS: Alanine Aminotransferase 35 Units/L (0-55); Albumin 2.6 g/dL (3.5-5.0); Albumin/Globulin Ratio 0.8 (1.1-2.2); Alkaline Phosphatase 69 Units/L (38-126); Aspartate Amino Transferase 34 Units/L (5-34); BUN/Creatinine Ratio 17 (6-26); Bilirubin,Total 0.5 mg/dL (0.2-1.2); Blood Urea Nitrogen 16 mg/dL (8-26); Calcium 8.5 mg/dL (8.6-10.8); Carbon Dioxide 24 mEq/L (19-29); Chloride 107 mEq/L (98-109); Globulin 3.2 g/dL (2.4-3.5); Glucose 136 mg/dL (70-99); Magnesium 1.6 mg/dL (1.6-2.6); Osmolality,Calculated 293 (280-300); Phosphorous 3.5 mg/dL (2.3-4.7); Potassium 3.6 mEq/L (3.5-4.5); Sodium 140 mEq/L (136-145); Total Protein 5.8 g/dL (6.0-8.3); eGFR For African Americans > 60 (> 60); eGFR For Non-African Americans > 60 (> 60)
[2016-11-09] MEDS: *HR* Heparin 5,000 UNIT/ML VIAL SQ SCH ×2 (06:17→20:03)
[2016-11-09] MEDS: *HR* Morphine 2 MG/ML SYRINGE IVP PRN (07:14)
[2016-11-09] MEDS: Pantoprazole 40 MG VIAL IVP SCH (09:53)
[2016-11-09] MEDS: Aspirin 325 MG TABLET GTUBE SCH (09:53)
[2016-11-09] MEDS: OxyCODONE CONC 5 MG/0.25 ML ORAL.SYG PO PRN (10:36)
--- NOTE | 2016-11-09 12:37 | Internal Med Progress Note ---
Date of Encounter: 11/09/16 Time of Encounter: 07:30 - Assessment and plan (1) Constipation by delayed colonic transit Current Visit: Yes Status: Suspected Assessment and plan: MOM and dulcolax ordered. Will place on routine Colace. (2) CVA (cerebral vascular accident) Current Visit: No Status: Inactive Assessment and plan: More alert and interactive. Sometimes he answers appropriately. Appears to be moving all extremities. Will needs speech reeval for PO intake but will continue tube feeds at this time. Anticipate d/c to rehab tomorrow. Qualifiers: CVA mechanism: embolism Precerebral and cerebral artery: posterior cerebral artery Laterality of affected vessel: left Qualified Code(s): I63.432 - Cerebral infarction due to embolism of left posterior cerebral artery (3) Acute metabolic encephalopathy Current Visit: Yes Status: Acute Assessment and plan: Seems to be slowly improving. Low dose Seroquel started yesterday. Pain is an issue - PO oxycodone ordered. (4) Hypertension Current Visit: Yes Status: Acute Assessment and plan: Blood pressure better controlled today. Continue same regimen for now. Qualifiers: Hypertension type: essential hypertension Qualified Code(s): I10 - Essential (primary) hypertension (5) Agitation Current Visit: Yes Status: Acute Assessment and plan: Started low dose Seroquel yesterday. Seems to be doing better. Treating pain as well. (6) Poor nutrition Current Visit: Yes Status: Acute Assessment and plan: Tolerating tube feedings. Electrolytes normal today. Will recheck them in AM. (7) Glaucoma Current Visit: Yes Status: Acute Assessment and plan: On eye drops. Qualifiers: Glaucoma type: unspecified type Laterality: bilateral Qualified Code(s): H40.9 - Unspecified glaucoma - Subjective Interval history: Mr. Crawford is currently admitted for acute CVA and encephalopathy. He remains high risk due to malnutrition, risk of refeeding syndrome and potential neurologic decline. Mr Crawford is more awake and conversant today. He is difficult to understand and does not make sense most of the time. Some of his conversation is appropriate. He appears to having a lot of discomfort in his lower back area. Appears he has not had a BM (meds ordered yesterday). Appears to be tolerating tube feeds at this time with good electrolytes. - Constitutional Vitals: Temp Pulse Resp BP Pulse Ox 98.3 F 86 16 119/69 95 11/09/16 07:00 11/09/16 11:00 11/09/16 11:00 11/09/16 11:00 11/09/16 11:00 General appearance: Present: A&O X 1, no acute distress. Absent: answers questions appropriately - Head Head exam: Present: normocephalic - Eye Eye exam: Present: conjuntiva pink - ENT ENT exam: Present: mucous membranes moist - Respiratory Respiratory exam: Present: decreased breath sounds, CTAB. Absent: rhonchi, wheezes - Cardiovascular Cardiovascular exam: Present: RRR, systolic murmur. Absent: tachycardia - GI/Abdominal GI/Abdominal exam: Present: soft. Absent: mass, tenderness - Extremities Exam Extremities exam: Present: warm. Absent: pedal edema - Neurological Exam Neurological exam: Present: alert - Skin Skin exam: Present: dry, warm. Absent: rash Internal Medicine: Result - Labs CBC & Chem 7: 11/09/16 03:20 11/09/16 03:20 Labs: Short CBC 11/09/16 Range/Units 03:20 WBC 7.1 (4.3-11.1) K/mcL Hgb 13.3 (12.9-16.9) g/dL Hct 40.6 (37.5-50.1) % Plt Count 135 L (140-400) K/mcL BMP 11/08/16 11/09/16 18:50 03:20 Sodium 140 Potassium 3.5 3.6 Chloride 107 Carbon Dioxide 24 BUN 16 Creatinine 0.94 Glucose 136 H Calcium 8.5 L Liver Function 11/09/16 Range/Units 03:20 Total Bilirubin 0.5 (0.2-1.2) mg/dL AST 34 (5-34) Units/L ALT 35 (0-55) Units/L Alkaline Phosphatase 69 (38-126) Units/L Albumin 2.6 L (3.5-5.0) g/dL - ABG Interpretation ABG results: PT/INR, D-dimer PT 12.5 Seconds (9.4-12.1) H 11/03/16 05:59 Consult Discharge Plan - Plan Referrals: NO,PCP [Primary Care Provider] -
[2016-11-09] MEDS: Latanoprost 2.5 ML BOTTLE BOTH EYES SCH (20:04)
[2016-11-10] MEDS: OxyCODONE CONC 5 MG/0.25 ML ORAL.SYG PO PRN ×3 (03:39→22:20)
[2016-11-10 05:16] LABS: Albumin 2.7 g/dL (3.5-5.0); BUN/Creatinine Ratio 20 (6-26); Blood Urea Nitrogen 18 mg/dL (8-26); Calcium 8.4 mg/dL (8.6-10.8); Carbon Dioxide 26 mEq/L (19-29); Chloride 104 mEq/L (98-109); Glucose 112 mg/dL (70-99); Magnesium 1.7 mg/dL (1.6-2.6); Osmolality,Calculated 289 (280-300); Potassium 3.8 mEq/L (3.5-4.5); Sodium 138 mEq/L (136-145); eGFR For African Americans > 60 (> 60); eGFR For Non-African Americans > 60 (> 60)
[2016-11-10] MEDS: *HR* Heparin 5,000 UNIT/ML VIAL SQ SCH ×2 (06:45→18:12)
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
[2016-11-10] MEDS ORDERED: Lisinopril 20 MG TABLET PO SCH (09:00)
[2016-11-10] MEDS: Aspirin 325 MG TABLET GTUBE SCH (09:25)
--- NOTE | 2016-11-10 11:01 | Physician Discharge Referral ---
[facility] Ref[facility] Info [facility] Provider in Charge: Dr. Rock Provider in Charge after Transfer: PCP Institutional Level of Care: Skilled - Diagnosis (1) CVA (cerebral vascular accident) Priority: Primary Status: Inactive (2) AA (alcohol abuse) Priority: Secondary Status: Resolved (3) DVT prophylaxis Priority: Secondary Status: Acute (4) Hypertension Priority: Secondary Status: Resolved (5) Nutrient intake below expected requirement Priority: Secondary Status: Resolved Prognosis: Good Aware of Diagnosis: Family Aware of Prognosis: Family - Transfer Medications Prescriptions: OxyCODONE CONC 5 mg PO Q6HR PRN #120 oral.syg PRN Reason: Pain Home Medications: Aspirin 325 mg GTUBE DAILY tablet 11/10/16 [Rx] Atorvastatin [Lipitor] 40 mg GTUBE HS #0 tablet 11/10/16 [Rx] Lansoprazole [Prevacid] 15 mg GTUBE QAM capsule. 11/10/16 [Rx] Latanoprost [Xalatan] 1 drop BOTH EYES HS bottle 11/10/16 [Rx] Lisinopril [Zestril] 20 mg GTUBE DAILY #0 tablet 11/10/16 [Rx] OxyCODONE CONC 5 mg PO Q6HR PRN #120 oral.syg 11/10/16 [Rx] Quetiapine Fumarate [Seroquel] 25 mg GTUBE BID tablet 11/10/16 [Rx] Allergies/Adverse Reactions: Allergies No Known Allergies Allergy (Verified 10/30/16 07:45) - Respiratory Orders Smoking Cessation: Smoking cessation has been advised. For more information, call the [place] Tobacco Quit Line at 4-607-IDCS-NOW. - Lab Orders Lab Orders: Other (include drug levels w/frequency) (magnesium, potassium) - Advance Directives Living Will: No Power of Manager Cath Lab: Yes Code Status: DNR-Arrest/Don't Intubate - Mobility Orders Bedrest - Rehabiliation Orders Rehab Potential: Fair Rehab Orders: Evaluation for Physical Therapy, Evaluation for Occupational Therapy, Evaluation for Speech Therapy - Treatments Skin tear care topically daily PRN per policy - Diet Orders Regular (By G tube) Tube Feedings (type/amount/rate): Jevity 1.5 @goal rate 55 ml/hr via PEG tube CERTIFICATION: I certify that the transfer of the above named patient to an Extended Care Facility is necessary for the continuing treatment of the diagnosis listed. The above information is true and accurate reflection of patient's current condition. Confidential - Redisclosure prohibited without a patient's written consent.
[2016-11-10] MEDS ORDERED: FLU VACC QS2016-17 36MOS UP/PF 0.5 ML SYRINGE IM ONE (11:02)
[2016-11-10] MEDS: Latanoprost 2.5 ML BOTTLE BOTH EYES SCH (22:15)
[2016-11-11] MEDS: *HR* Heparin 5,000 UNIT/ML VIAL SQ SCH (06:17)
[2016-11-11] MEDS: *HR* LORazepam 2 MG/ML VIAL IVP PRN (07:02)
[2016-11-11] MEDS: Aspirin 325 MG TABLET GTUBE SCH (08:38)
--- NOTE | 2016-11-11 08:40 | Internal Med Progress Note ---
<Moisés Carter - Last Filed: 11/11/16 08:38> Date of Encounter: 11/11/16 Time of Encounter: 08:38 - Assessment and plan (1) CVA (cerebral vascular accident) Current Visit: No Status: Inactive Assessment and plan: Admitted for left PHYSICIAN OFFICE CLIN ASST infarct. Patient is alret oriented x1. He will be d/c to snf today. 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 (3) Hypertension Current Visit: Yes Status: Resolved Assessment and plan: Blood pressure better controlled today. Continue same regimen for now. Qualifiers: Hypertension type: essential hypertension Qualified Code(s): I10 - Essential (primary) hypertension (4) Nutrient intake below expected requirement Current Visit: Yes Status: Resolved Assessment and plan: Peg tube is in place. Jevity 2 @ 55cc/hr. - Subjective Interval history: There was no change in mental status in the last 24 hours. He has LUE US for evaluaation of LUE swelling. US showed SVT. Patient will be d/c to SNF. - Constitutional Vitals: Temp Pulse Resp BP Pulse Ox 97.7 F 67 19 140/85 96 11/11/16 05:02 11/11/16 07:00 11/11/16 07:00 11/11/16 07:00 11/11/16 07:00 General appearance: Present: A&O X 1 (Paties awake and alert. Does not follow commands, does not answer questions appropriately. may be aphasic ), no acute distress. Absent: answers questions appropriately - Head Head exam: Present: atraumatic, normocephalic - Eye Eye exam: Present: PERRL, conjuntiva pink, sclera anicteric Pupils: Present: PERRL - Neck Neck exam general surgery: Present: supple, trachea midline. Absent: lymphadenopathy - Respiratory Respiratory exam: Present: CTAB. Absent: accessory muscle use, rales, rhonchi, wheezes - Cardiovascular Cardiovascular exam: Present: RRR, +S1, +S2. Absent: diastolic murmur, gallop, rubs, systolic murmur - GI/Abdominal GI/Abdominal exam: Present: normal bowel sounds, soft, no peritoneal signs. Absent: distended, tenderness - Extremities Exam Extremities exam: Present: warm, radial pulses palpable and symetrical. Absent : calf tenderness, cyanotic, pedal edema - Neurological Exam Neurological exam: Present: alert. Absent: pronater drift, facial droop, speech deficit - Skin Skin exam: Present: dry, intact Internal Medicine: Result - Labs CBC & Chem 7: 11/09/16 03:20 11/10/16 04:19 - ABG Interpretation ABG results: PT/INR, D-dimer PT 12.5 Seconds (9.4-12.1) H 11/03/16 05:59 Consult Discharge Plan - Plan Instructions: Oxycodone/Acetaminophen (By mouth), Ischemic Stroke (DC), Ischemic Stroke (GEN), Chronic Dysphagia (DC), Chronic Hypertension (DC), How to Use and Care for Your PEG Tube, Supervisor Line Department (GEN) Referrals: Tj Nye MD [Non-Partnered Physician] - NO,PCP [Primary Care Provider] - Prescriptions: OxyCODONE CONC 5 mg PO Q6HR PRN #120 oral.syg PRN Reason: Pain <Prakash Rock - Last Filed: 11/11/16 14:16> - Assessment and plan (1) CVA (cerebral vascular accident) Current Visit: No Status: Inactive Qualifiers: CVA mechanism: embolism Precerebral and cerebral artery: posterior cerebral artery Laterality of affected vessel: left Qualified Code(s): 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 Qualifiers: Laterality: right Qualified Code(s): I82.611 - Acute embolism and thrombosis of superficial veins of right upper extremity (3) Constipation by delayed colonic transit Current Visit: Yes Status: Suspected (4) Acute metabolic encephalopathy Current Visit: Yes Status: Acute (5) Hypertension Current Visit: Yes Status: Resolved Qualifiers: Hypertension type: essential hypertension Qualified Code(s): I10 - Essential (primary) hypertension (6) Agitation Current Visit: Yes Status: Acute (7) Poor nutrition Current Visit: Yes Status: Acute (8) Glaucoma Current Visit: Yes Status: Acute Qualifiers: Glaucoma type: unspecified type Laterality: bilateral Qualified Code(s): H40.9 - Unspecified glaucoma - Constitutional Vitals: Temp Pulse Resp BP Pulse Ox 98.1 F 91 16 125/54 94 L 11/11/16 11:15 11/11/16 11:15 11/11/16 11:15 11/11/16 11:15 11/11/16 11:15 Internal Medicine: Result - Labs CBC & Chem 7: 11/09/16 03:20 11/10/16 04:19 - ABG Interpretation ABG results: PT/INR, D-dimer PT 12.5 Seconds (9.4-12.1) H 11/03/16 05:59 - Attending Attestation I examined this patient and my medical decision-making was reviewed with the Resident Physician on 11/11/16. I agree with the documented findings, disposition and treatment plan as described except to the extent set forth below. Mr. iLsa is doing about the same. He had venous duplex done which showed superficial clot in cephalic vein. No other new issues. Exam Alert. Comfortable Heart reg Lungs no wheeze Plan D/C to SNF today - afebrile and medically stable PT/OT/ST at facility
[2016-11-11] MEDS ORDERED: Lisinopril 20 MG TABLET GTUBE SCH (09:00)
[2016-11-11 11:22] VITALS: BP 125/54
--- NOTE | 2016-11-11 12:05 | Venous Imaging Report ---
UE Venous Duplex Patient Name:Joseph Crawford Order Number:[id number] Procedure Date:11/10/2016 Date:1935ge:81 yrs Gender:Male Location:[facility] Room #: 2NE17 Computer Application Developer:Jinny Nix Referring MD:Brian Overton DO door framer:None Reading MD:Antelmo Green MD , FACS Primary Indications:Swelling and redness Secondary Indications: Impressions: Right upper extremity: normal deep exam. Upper extremity abnormal superficial exam: right Cephalic Forearm vein acute thrombosis. Left upper extremity: normal contralateral exam. Recommendations: Test completed on 11/10/2016 at 10:18:00 pm. Critical findings reported to Rosie Cody RN by phone at 11:00:00 pm on 11/10/2016 by Jinny Nix. Findings Venous Duplex Results: Right: There is an acute occlusive thrombus seen in the right cephalic forearm. Prior Study: No prior study available for comparison. Upper Extremity Venous Duplex Side Vein Compress Spontaneous Flow Augment Right Jugular Normal Yes Phasic Yes Right Subclavian Normal Yes Phasic Yes Right Axillary Normal Yes Phasic Yes Right Brachial Normal Yes Phasic Yes Right Cephalic Upper Arm Normal Yes Phasic Yes Right Cephalic Forearm None no Absent no Right Basilic Upper Arm Normal Yes Phasic Yes Right Basilic Forearm Normal Yes Phasic Yes Right Radial Normal Yes Phasic Yes Right Ulnar Normal Yes Phasic Yes Left Subclavian Normal Yes Phasic Yes Updated by Antelmo Green MD, FACS on 11/11/2016 11:58:42 AM Antelmo Green MD electronically signed on 11/11/2016 11:59:17 AM with status of Final
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
== END 2016-11-11 14:43 | DRG 64 ==
LOC: 2NENU 18:51 → SUATTDRO 18:51 → 2NENU 11-03 18:24
PROVIDERS: ADMIT Hospitalist; ATTEND Internal Medicine